=== PATIENT | female | born 1945 | race Caucasian/White ===

== ENCOUNTER 2022-07-20 10:33 | Emergency (ER) | payer MEDICARE ==
[~2022-07-20] VITALS: Ht 165.1 cm; Wt 93.4 kg
--- NOTE | 2022-07-20 12:23 | ED General ---
General Chief Complaint: Back Problems Stated Complaint: LOWER BACK PAIN Nursing Triage Note: PT BROUGHT IN BY [facility] FROM HOME WITH COMPLAINT OF BACK AND LOWER EXTREMITY SWELLING. PT STATES WENT TO [facility] WALK IN ON MONDAY AND WAS PRESCRIBED ANTIBIOTICS FOR THE SWELLING. STATES SHE HAS CHRONIC BACK PAIN THAT HAS WORSENED IN THE LAST FEW DAYS. STATES NORMALLY TAKES MELOXICAM FOR HER ARTHRITIS. STATES SHE HAS NOT ESTABLISHED WITH PCP AFTER MOVING HERE. Source of Information: Patient Exam Limitations: No Limitations History of Present Illness Date Seen by Provider: Jul 20, 2022 Time Seen by Provider: 12:06 Initial Comments Patient with a chief complaint of low back discomfort and pain across anterior low pelvis since last night. She has had progressive swelling in her LE bilaterally over many weeks and was recently in urgent care and prescribed antibiotics for open wounds to her LLE. She is on Keflex. Timing/Duration: 2-3 Days Severity: Moderate Associated Systoms: Other Allergies and Home Medications Allergies Coded Allergies: No Known Drug Allergies (Unverified , 07/20/22) Patient Home Medication List Home Medication List Reviewed: Yes Tramadol HCl (Tramadol HCl) 50 Mg Tablet, 50 MG PO Q6H PRN for PAIN Prescribed by: LEE BEGUM on 07/20/22 1430 Review of Systems Review of Systems Constitutional: see HPI Past Odivsen-Wghhxb-Eapujs Hx Patient Social History Tobacco Use?: No Use of E-Cig and/or Vaping dev: No Substance use?: No Alcohol Use?: No Pt feels they are or have been: No Physical Exam Vital Signs Vital Signs - First Documented 07/20/22 10:33 Temp 36.7 Pulse 99 Resp 20 B/P (MAP) 172/80 (110) Pulse Ox 97 O2 Delivery Room Air Capillary Refill : Less Than 3 Seconds Height, Weight, BMI Height: '" Weight: lbs. oz. kg; 34.00 BMI Method: Progress/Results/Core Measures Suspected Sepsis SIRS Temperature: Pulse: 99 Respiratory Rate: 20 Laboratory Tests 07/20/22 10:39: White Blood Count 8.0 Blood Pressure 172 /80 Mean: 110 Laboratory Tests 07/20/22 10:39: Creatinine 0.68, Platelet Count 207 Results/Orders Lab Results Laboratory Tests Test 07/20/22 10:39 07/20/22 13:20 Range/Units White Blood Count 8.0 4.3-11.0 10^3/uL Red Blood Count 4.37 3.80-5.11 10^6/uL Hemoglobin 11.7 11.5-16.0 g/dL Hematocrit 35 35-52 % Mean Corpuscular Volume 81 80-99 fL Mean Corpuscular Hemoglobin 27 25-34 pg Mean Corpuscular Hemoglobin Concent 33 32-36 g/dL Red Cell Distribution Width 14.6 H 10.0-14.5 % Platelet Count 207 130-400 10^3/uL Mean Platelet Volume 10.2 9.0-12.2 fL Immature Granulocyte % (Auto) 1 % Neutrophils (%) (Auto) 80 H 42-75 % Lymphocytes (%) (Auto) 14 12-44 % Monocytes (%) (Auto) 5 0-12 % Eosinophils (%) (Auto) 0 0-10 % Basophils (%) (Auto) 0 0-10 % Neutrophils # (Auto) 6.4 1.8-7.8 10^3/uL Lymphocytes # (Auto) 1.1 1.0-4.0 10^3/uL Monocytes # (Auto) 0.4 0.0-1.0 10^3/uL Eosinophils # (Auto) 0.0 0.0-0.3 10^3/uL Basophils # (Auto) 0.0 0.0-0.1 10^3/uL Immature Granulocyte # (Auto) 0.0 0.0-0.1 10^3/uL Sodium Level 138 135-145 MMOL/L Potassium Level 4.1 3.6-5.0 MMOL/L Chloride Level 104 98-107 MMOL/L Carbon Dioxide Level 25 21-32 MMOL/L Anion Gap 9 5-14 MMOL/L Blood Urea Nitrogen 13 7-18 MG/DL Creatinine 0.68 0.60-1.30 MG/DL Estimat Glomerular Filtration Rate 91 BUN/Creatinine Ratio 19 Glucose Level 147 H 70-105 MG/DL Calcium Level 9.9 8.5-10.1 MG/DL Urine Color YELLOW Urine Clarity CLEAR Urine pH 6.0 5-9 Urine Specific [place] <=1.005 1.016-1.022 Urine Protein NEGATIVE NEGATIVE Urine Glucose (UA) NEGATIVE NEGATIVE Urine Ketones NEGATIVE NEGATIVE Urine Nitrite NEGATIVE NEGATIVE Urine Bilirubin NEGATIVE NEGATIVE Urine Urobilinogen 0.2 < = 1.0 MG/DL Urine Leukocyte Esterase NEGATIVE NEGATIVE Urine RBC (Auto) NEGATIVE NEGATIVE Urine RBC NONE /HPF Urine WBC NONE /HPF Urine Squamous Epithelial Cells RARE /HPF Urine Crystals NONE /LPF Urine Bacteria NEGATIVE /HPF Urine Casts NONE /LPF Urine Mucus NEGATIVE /LPF Urine Culture Indicated NO My Orders Orders - LEE BEGUM MD Ed Iv/Invasive Line Start (07/20/22 12:22) Cbc With Automated Diff (07/20/22 12:22) Basic Metabolic Panel (07/20/22 12:22) Ua Culture If Indicated (07/20/22 12:22) Tramadol Tablet (Ultram Tablet) (07/20/22 14:30) Medications Given in ED Current Medications Medications Dose Ordered Sig/Bennett Route Start Time Stop Time Status Last Admin Dose Admin Tramadol HCl 50 mg ONCE ONCE PO 07/20/22 14:30 07/20/22 14:32 DC 07/20/22 14:35 50 MG Vital Signs/I&O 07/20/22 07/20/22 10:33 14:51 Temp 36.7 Pulse 99 Resp 20 B/P (MAP) 172/80 (110) 159/80 Pulse Ox 97 O2 Delivery Room Air Capillary Refill : Less Than 3 Seconds Blood Pressure Mean: 110 Departure Impression Primary Impression: Low back pain Qualified Codes: M54.50 - Low back pain, unspecified Additional Impressions: Edema Qualified Codes: R60.9 - Edema, unspecified Cellulitis of leg without foot, left Disposition: 01 HOME, SELF-CARE Condition: Improved Departure-Patient Inst. Decision time for Depature: 14:23 Referrals: [facility] [place] [facility],LOCAL PHYSICIAN (PCP) Primary Care Physician Patient Instructions: Low Back Pain ED, Dependent Edema (DC) Add. Discharge Instructions: Try and keep your legs elevated while you are sitting in your wheelchair, this will keep the swelling from getting worse. Tramadol, 1 tablet every 8 hours as needed for pain. You can also take Extra Strength Tylenol, 2 tablets every 6 hours as needed for pain. Continue you antibiotics until they are gone. Carefully watch the salt in your diet because this makes you retain too much fluid (when you eat too much salt). Avoid Soda beverages, canned vegetables, restaurant prepared foods. Please call [facility] today or tomorrow for a follow up appointment to establish care. They can also help with Home Health/Aid services. Return to the Emergency Department for any new, concerning or emergent complaints. Scripts Tramadol HCl (Tramadol HCl) 50 Mg Tablet 50 MG PO Q6H PRN for PAIN, #10 TAB 0 Refills Prov: LEE BEGUM MD 07/20/22 LEE BEGUM MD Jul 20, 2022 12:23
[2022-07-20 12:30] LABS: BASOPHILS % (AUTO) 0 % (0-10); EOSINOPHILS % (AUTO) 0 % (0-10); HEMATOCRIT 35 % (35-52); HEMOGLOBIN 11.7 g/dL (11.5-16.0); LYMPHOCYTES # (AUTO) 1.1 10^3/uL (1.0-4.0); LYMPHOCYTES % (AUTO) 14 % (12-44); MEAN CORPUSCULAR HEMOGLOBIN 27 pg (25-34); MEAN CORPUSCULAR HGB CONC 33 g/dL (32-36); MEAN CORPUSCULAR VOLUME 81 fL (80-99); MEAN PLATELET VOLUME 10.2 fL (9.0-12.2); MONOCYTES # (AUTO) 0.4 10^3/uL (0.0-1.0); MONOCYTES % (AUTO) 5 % (0-12); NEUTROPHILS # (AUTO) 6.4 10^3/uL (1.8-7.8); NEUTROPHILS % (AUTO) 80 % (42-75); PLATELET COUNT 207 10^3/uL (130-400)
[2022-07-20 12:38] LABS: CALCIUM 9.9 MG/DL (8.5-10.1); CREATININE SERUM 0.68 MG/DL (0.60-1.30); POTASSIUM 4.1 MMOL/L (3.6-5.0)
[2022-07-20 13:27] LABS: BILIRUBIN,URINE NEGATIVE (NEGATIVE); CLARITY,URINE CLEAR; COLOR,URINE YELLOW; GLUCOSE, URINE (UA) NEGATIVE (NEGATIVE); KETONES,URINE NEGATIVE (NEGATIVE); LEUKOCYTE ESTERASE ,URINE NEGATIVE (NEGATIVE); NITRITE,URINE NEGATIVE (NEGATIVE); PROTEIN,URINE NEGATIVE (NEGATIVE)
[2022-07-20 13:38] LABS: BACTERIA,URINE NEGATIVE /HPF; SQUAMOUS EPITHELIAL CELL,UR RARE /HPF
[2022-07-20] MEDS ORDERED: TRM50T PO (14:28)
[2022-07-20 14:51] VITALS: BP 159/80
== END 2022-07-20 15:10 | disposition home or self-care (01) ==
LOC: ER 10:35
DX: M54.50 Low back pain, unspecified (principal); L03.116 Cellulitis of left lower limb; R60.0 Localized edema
CPT/HCPCS: 36415; 51701; 80048; 81000; 85025

== ENCOUNTER 2022-07-23 18:21 | Emergency (ER) | payer MEDICARE, MEDICAID ==
[~2022-07-23] VITALS: Ht 165 cm; Wt 93.4 kg
[~2022-07-23 18:21] MED LIST: TRM50T PO
[2022-07-23] MEDS ORDERED: TETANUS,DIPTH,PERTUSS P/F (BOOSTRIX) 0.5 ML VIAL IM ONE (18:45)
--- NOTE | 2022-07-23 19:12 | ED Hip Pain/Injury ---
General Chief Complaint: Hip/Pelvic Problems Stated Complaint: LEFT HIP PAIN Nursing Triage Note: PT TO [facility] WITH CC OF A FALL LAST WEEK, LT HIP/THIGH PAIN. STATES SHE HAS NOT TAKEN ANYTHING FOR PAIN, WAS AT [facility] YESTERDAY FOR SWELLING IN BOTH LEGS. PT HAS SEVERAL SCRATCHES ON BOTH LOWER LEGS FROM CATS/KITTENS. DENIES ANY RAD OF LEGS OR HIP Source: patient (SOMEWHAT DIFFICULT HISTORIAN) History of Present Illness Date Seen by Provider: Jul 23, 2022 Time Seen by Provider: 18:22 Initial Comments PT ARRIVES VIA EMS FROM HOME C/O LEFT HIP AND THIGH PAIN SINCE FALLING OUT OF HER WHEELCHAIR LAST Monday07/19/22 STATES SHE FELL ASLEEP IN HER MANUAL WHEELCHAIR AND FELL OUT OF IT. SHE BUMPED HER HEAD ON THE LEG OF A TABLE--NO LOSS OF CONSCIOUSNESS. 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 SHE HAS EXTENSIVE WOUNDS AND SCRATCHES ON BOTH LOWER LEGS AND BOTH HANDS SHE STATES IT IF FROM HER CATS AND KITTENS SCRATCHING HER. SHE C/O BILATERAL LEG SWELLING ( CHRONIC ) AND REDNESS AND WEEPING. NO FEVER LAST TETANUS IS UNKNOWN SHE DID NOT SEEK CARE AT THE TIME OF THE INCIDENT SHE CAME TO ER ON 07/20/22 AND COMPLAINED OF LOW BACK PAIN . LAB WAS DONE, AND SHE WAS GIVEN RX FOR TRAMADOL BUT DID NOT PICK IT UP SHE STATES SHE WENT TO [facility] WALK IN CLINIC LAST MONDAY FOR THE SCRATCHES ON HER L EGS AND WAS PRESCRIBED AN ANTIBIOTIC SHE STATES SHE DID NOT GO TO HER APPOINTMENT AT [facility]- ON MONDAY FOR THIS PROBLEM, BUT DID GO YESTERDAY FOR THE SWELLING IN HER LEGS SHE STATES SHE WAS STARTED ON A DIURETIC, HER BLOOD PRESSURE MEDICATION DOSE WAS CUT IN HALF AND SHE WAS PRESCRIBED AN ANTIBIOTIC FOR THE WOUNDS ON HER LEGS. SYMPTOMS ARE NO DIFFERENT TODAY IN ANY WAY. SHE HAS NOT HAD ANY IMAGING OF ANY KIND. SHE HAS HISTORY OF HTN, UTERINE CANCER --STATES "CLEAR SINCE 2015", CHRONIC LEG EDEMA SHE DENIES HISTORY OF DIABETES OR HEART DISEASE SHE HAS CHRONIC GENERALIZED PAIN AND ARTHRITIS SHE HAS CHRONIC BACK PAIN AND "SCIATICA" AND HAS HAD BACK SURGERY IN THE PAST PER MED RECONCILIATION, PT HAS BEEN PRESCRIBED: KEFLEX AND MUPIROCIN 07/15/22 TRAMADOL 07/20/22 AUGMENTIN 07/22/22 SHE HAS BEEN PRESCRIBED : PRAMIPEXOLE, OMEPRAZOLE, TIZANIDINE, MELOXICAM, ATORVASTATIN LISINOPRIL--CHANGED TO LISINOPRIL / HCTZ 07/22/22 PT STATES SHE RAN OUT OF TIZANIDINE, AND STILL HAS MELOXICAM PT STATES SHE MOVED HERE 12/14/21 FROM [place], AND LIVES HERE WITH HER SON. HE DOES NOT HAVE A VEHICLE PT STATES SHE GETS AROUND IN A MANUAL WHEELCHAIR, HAS A POWER CHAIR BUT IT HAS BEEN BROKEN FOR 3 YEARS, AND HAS NEVER ATTEMPTED TO GET IT FIXED Other PCP [facility] Allergies and Home Medications Allergies Coded Allergies: No Known Drug Allergies (Unverified , 07/20/22) Patient Home Medication List Tramadol HCl (Tramadol HCl) 50 Mg Tablet, 50 MG PO Q6H PRN for PAIN Prescribed by: LEE BEGUM on 07/20/22 1430 Review of Systems Constitutional: no symptoms reported Respiratory: no symptoms reported; No short of breath Cardiovascular: no symptoms reported Gastrointestinal: no symptoms reported Genitourinary: no symptoms reported Musculoskeletal: see HPI Skin: see HPI Psychiatric/Neurological: No Symptoms Reported Past Nxbylyy-Vpqgcb-Wkxpon Hx Patient Social History Tobacco Use?: No Smoking Status: Never a Smoker Smokeless Tobacco Frequency: Never a User Substance use?: No Alcohol Use?: No Immunizations Up To Date Tetanus Booster (TDap): Unknown Past Medical History Surgery/Hospitalization HX: HTN, ARTHRITIS, BACK SURGERY, C SECTION, VIMAL, UTERINE CA Surgeries: Yes Section, Gallbladder, Hysterectomy, Oophorectomy, Orthopedic Respiratory: No Cardiac: Yes Chronic Edema/Swelling, High Cholesterol, Hypertension Neurological: No Genitourinary: No Gastrointestinal: Yes Gastroesophageal Reflux Musculoskeletal: Yes (SCITATICA; S/P BACK SURGERY; RESTLESS LEG SYNDROME) Arthritis, Chronic Back Pain Endocrine: No HEENT: No Cancer: Yes Uterine Did You Recieve Any Treatments: Yes What Type of Treatment Did You: Surgical Intervention Psychosocial: No Integumentary: No Blood Disorders: No Family Medical History SOCIAL HISTORY: -SMOKING--DENIES -ETOH--DENIES -DRUGS--DENIES PAST SURGICAL HISTORY: - -HYSTERECTOMY / BILATERAL SALPINGO=OOPHORECTOMY -BACK SURGERY Physical Exam Vital Signs Vital Signs - First Documented 07/23/22 18:24 Temp 37.0 Pulse 96 Resp 20 B/P (MAP) 141/62 (88) O2 Delivery Room Air Capillary Refill : Less Than 3 Seconds Height, Weight, BMI Height: '" Weight: lbs. oz. kg; 34.00 BMI Method: General Appearance: No Apparent Distress, WD/WN, Obese, Other (FILTHY, MALODOROUS, ) HEENT: PERRL/EOMI Neck: Full Range of Motion, Normal Inspection, Non Tender, Supple Cardiovascular: Regular Rate, Rhythm, No JVD, No Murmur, Normal Peripheral Pulses Respiratory: Normal Breath Sounds, No Accessory Muscle Use, No Respiratory Distress Peripheral Pulses: 1+ Dorsalis Pedis (R), 1+ Left Dors-Pedis (L) Gastrointestinal: Non Tender, Soft Back: No CVA Tenderness Extremity: Pedal Edema (2+ EDEMA BILATERALLY, EXTENSIVE SORES AND LINEAR SCRATCHES/ABRASIONS WITH OOZING/WEEPING FROM MULTIPLE AREAS--MOSTLY THE ANTERIOR ASPECT OF BOTH LOWER LEGS AND TOPS OF FEET; THERE IS PATCHY ERYTHMA TO ANTERIOR ASPECT OF BILATERAL LOWER LEGS--RIGHT ? LEFT, NO ABSCESS OR STREAKS. SHE HAS SEVERAL PUNCTURE WOUNDS AND LINEAR SCRATCHES TO THE DORSAL ASPECT OF BOTH HANDS ANd FOREARMS, BUT NO DRAINAGE OR BLEEDING OR ERYTHEMA, NO STRAKS. MOTOR/SE NSORY/VASCUOLAR INTACT IN ALL EXTREMITIES. DTR'S INTACT. ), Other (THERE IS SOME MILD BRUISING TO THE DORSUM OF RIGHT HAND. THERE IS MODERATE BRUISING AND SWELLING TO LEFT GREAT TOE. THERE IS TENDERNESS TO LEFT HIP, WITH LIMITED ROM DUE TO PAIN . ) Neurologic/Psychiatric: Alert, Oriented x3, No Motor/Sensory Deficits, Normal Mood/Affect, dice manager II-XII Norm as Tested Skin: Normal Color, Warm/Dry Progress/Results/Core Measures Results/Orders My Orders Orders - JENNIFER DOLAN DO Hand, Right, 3 Views (07/23/22 18:32) Femur, Left, 2 Views (07/23/22 18:32) Foot, Right, 3 View (07/23/22 18:32) Dipht,Pertuss(Acell),Tet Adult (Boostrix (07/23/22 18:45) Ct Lumbar Spine Wo (07/23/22 18:34) Ct Pelvis Wo (07/23/22 18:34) Pelvis 1 To 2 Views (07/23/22 18:41) Ketorolac Injection (Toradol Injection) (07/23/22 20:15) Medications Given in ED Current Medications Medications Dose Ordered Sig/Bennett Route Start Time Stop Time Status Last Admin Dose Admin Diphtheria/ Tetanus/Acell Pertussis 0.5 ml ONCE ONCE IM 07/23/22 18:45 07/23/22 18:46 DC 07/23/22 18:41 0.5 ML Ketorolac Tromethamine 60 mg ONCE ONCE IM 07/23/22 20:15 07/23/22 20:16 DC 07/23/22 20:13 60 MG Vital Signs/I&O 07/23/22 18:24 Temp 37.0 Pulse 96 Resp 20 B/P (MAP) 141/62 (88) O2 Delivery Room Air Blood Pressure Mean: 88 Progress Progress Note : Progress Note DPT VACCINATION GIVEN XRAYS AND CT SCAN DONE REVIEWED PRIOR RECORDS--SINGLE ER VISIT HERE 07/20/22. DISCUSSED TEST RESULTS, ANTICIPATED COURSE, SYMPTOMATIC TREATMENT, MEDICATIONS, NEED FOR FOLLOW UP AND RETURN PRECAUTIONS. AGAIN REVIEWED WOUND CARE OF HER LEGS AND HANDS--PT IS FILTHY AND WOUNDS HAVE NOT BEEN CLEANSED OR DRESSED AT ALL, AND SHE HAS NOT BEEN USING ANY TOPICAL ANTIBIOTICS TO THE WOUNDS ALSO STRESSED THE IMPORTANCE OF TAKING THE NEW ORAL ANTIBIOTIC THAT SHE WAS PRESCRIBED, WHICH SHE HAS NOT BEEN TAKING. ADVISED PT THAT SHE NEEDS TO COMMERCIAL ACCOUNT MANAGER THE PRESCRIPTION FOR PAIN MEDICATION FROM HER PREVIOUS ER VISIT ALSO ADVISED HER THAT SHE NEEDS TO FOLLOW UP WITH [facility] FOR REFILLS ON HER TIZANIDINE Diagnostic Imaging Comments CT SCANS--PER RADIOLOGIST REPORTS AT 1934: COMPARISON: None. FINDINGS: CT lumbar spine: There is no acute lumbar spine fracture or dislocation. There are mild hypertrophic spurs involving the mid to lower lumbar spine. There is lower lumbar spine facet arthropathy. There are diffuse disk bulges at the L3-L4, L4-L5, and L5-S1 levels. There is severe bilateral L3-L4 neural foramen narrowing. Moderate left L4-L5 neural foramen narrowing. There is no significant paraspinal soft tissue abnormality. There is a 2.2 cm fat density nodule involving left adrenal gland. CT PELVIS: There is no acute fracture or dislocation. There are severe degenerative spurs and severe joint space narrowing involving both femoral acetabular regions. There is prominent subchondral cystic changes involving both hips with left-sided more than the right. There is sclerosis of the sacrum a joint region. There is no intrapelvic or extrapelvic soft tissue structures are unremarkable. IMPRESSION: 1.: There is no acute lumbar spine fracture or dislocation. There is multilevel lumbar spine degenerative disease. 2: There is no acute fracture or dislocation of the pelvis. 3: There is severe degenerative disease of both hips. 4.: There is a left adrenal gland adenoma. Departure Impression Primary Impression: CHRONIC DEPENDENT LEG EDEMA Additional Impressions: Chronic low back pain with bilateral sciatica Chronic hip pain, bilateral Bilateral lower leg cellulitis Cat scratch of multiple sites Lahhqlxgoh-espffkmks-hvcobve (DPT) vaccination administered at current visit Fall involving wheelchair as cause of accidental injury at home as place of occurrence Lumbar degenerative disc disease Arthritis of both hips Disposition: HOME, SELF-CARE Condition: Stable Departure-Patient Inst. Referrals: GUSTABO GARCIA DO [facility] Patient Instructions: General Trauma, Adult ED, Degenerative Disc Disease ED, Hip Pain ED, Wound Care ED, Cellulitis (Skin Infection), Adult ED, Low Back Pain ED Add. Discharge Instructions: TAKE ALL OF YOUR MEDICATIONS PRESCRIBED YOU NEED TO COMMERCIAL ACCOUNT MANAGER THE PRESCRIPTION FOR PAIN MEDICATION FROM THE PHARMACY, THAT WAS PRESCRIBED TO YOU ON 07/20/22 BY THE ER PHYSICIAN. FOLLOW UP WITH [facility] IN 2-3 DAYS TO RECHECK YOUR LEG WOUNDS AND FOR FURTHER CARE OF YOUR CHRONIC PAIN COMPLAINTS ELEVATE YOUR LEGS MUCH POSSIBLE CLEAN WOUNDS TWICE A DAY AND APPLY THE PRESCRIBED ANTIBIOTIC OINTMENT AND FRESH DRESSINGS TWICE A DAY All discharge instructions reviewed with patient and/or family. Voiced unde rstanding. JENNIFER DOLAN DO Jul 23, 2022 19:12
--- NOTE | 2022-07-23 19:14 | Diagnostic Imaging Report ---
CLINICAL INDICATION: Patient status post fall last week. Patient has left hip and thigh pain. Patient with swelling in both legs. Patient with back pain. EXAMS: 1: Axial CT scan of the lumbar spine without contrast. Sagittal and coronal reformatted images are created. Auto Exposure Controls were utilized during the CT exam to meet ALARA standards for radiation dose reduction. 2: CT scan of the pelvis without contrast. Sagittal and coronal reformatted images are created. Auto Exposure Controls were utilized during the CT exam to meet ALARA standards for radiation dose reduction. COMPARISON: None. FINDINGS: CT lumbar spine: There is no acute lumbar spine fracture or dislocation. There are mild hypertrophic spurs involving the mid to lower lumbar spine. There is lower lumbar spine facet arthropathy. There are diffuse disk bulges at the L3-L4, L4-L5, and L5-S1 levels. There is severe bilateral L3-L4 neural foramen narrowing. Moderate left L4-L5 neural foramen narrowing. There is no significant paraspinal soft tissue abnormality. There is a 2.2 cm fat density nodule involving left adrenal gland. CT PELVIS: There is no acute fracture or dislocation. There are severe degenerative spurs and severe joint space narrowing involving both femoral acetabular regions. There is prominent subchondral cystic changes involving both hips with left-sided more than the right. There is sclerosis of the sacrum a joint region. There is no intrapelvic or extrapelvic soft tissue structures are unremarkable. IMPRESSION: 1.: There is no acute lumbar spine fracture or dislocation. There is multilevel lumbar spine degenerative disease. 2: There is no acute fracture or dislocation of the pelvis. 3: There is severe degenerative disease of both hips. 4.: There is a left adrenal gland adenoma. Dictated by: Dictated on workstation # [id number]
--- NOTE | 2022-07-23 19:49 | Diagnostic Imaging Report ---
CLINICAL INDICATIONS: Patient status post fall last week with left hip and pelvic pain. EXAMS: 1: X-ray of the pelvis AP view 2: X-ray left femur, 4 views. COMPARISON: CT scan of the pelvis without contrast dated 07/23/2022. FINDINGS: X-ray of the pelvis and left femur show no acute fracture or dislocation. There are severe degenerative spurs involving both hips with joint space narrowing and subchondral sclerosis. There is enthesopathy of the iliac crests and ischium. There is lower lumbar spine degenerative disease. X-ray of the left femur shows no significant abnormality. Visualized portion left kidney is unremarkable. IMPRESSION: 1: X-rays of the pelvis and left femur show no acute fracture or dislocation. 2: There is severe degenerative disease of both hips. Dictated by: Dictated on workstation # [id number]
--- NOTE | 2022-07-23 20:00 | Diagnostic Imaging Report ---
CLINICAL INDICATIONS: Patient has lateral foot pain status post fall last week. EXAM: X-ray of the right foot, 3 views. COMPARISON: None. FINDINGS: There is osteopenia which limits evaluation for fine bony detail. There is no acute fracture or dislocation. There is bony irregularity and spurring involving the base of the 5th metatarsal bone, dorsal midfoot, and 1st MTP joint. There is hypertrophic calcaneal spurs at the plantar and Achilles attachment. There is soft tissue swelling about the foot. There is no soft tissue air or radiodense foreign object. IMPRESSION: 1: There is no acute fracture or dislocation. 2: There is osteopenia involving the right foot. 3: There is degenerative disease of the right foot. Dictated by: Dictated on workstation # [id number]
--- NOTE | 2022-07-23 20:02 | Diagnostic Imaging Report ---
CLINICAL INDICATIONS: Patient fell last week with hand pain. EXAM: X-ray of the right hand, 3 views. COMPARISON: None. FINDINGS: There is no acute fracture or dislocation. There is a small chronic calcification seen distal to the ulnar styloid process. The distal radioulnar joints unremarkable. Carpal bones show no significant abnormality. There is erosive arthropathy seen throughout the 1st through 5th digits involving the DIP and PIP joints. There is degenerative spurs involving the 1st MCP joint and 1st CMC joint. Osteopenia seen. IMPRESSION: 1: There is no acute fracture or dislocation. 2: There is erosive arthropathy involving the right hand. Dictated by: Dictated on workstation # [id number]
[2022-07-23] MEDS ORDERED: KETOROLAC 60 MG/2 ML VIAL IM ONE (20:15)
[2022-07-23 20:45] VITALS: BP 135/58
== END 2022-07-23 20:59 | disposition home or self-care (01) ==
LOC: EDUNIT# 18:21 → ER 18:22
DX: S80.811A Abrasion, right lower leg, initial encounter (principal); S80.812A Abrasion, left lower leg, initial encounter; S60.512A Abrasion of left hand, initial encounter; S60.511A Abrasion of right hand, initial encounter; S50.812A Abrasion of left forearm, initial encounter; S50.811A Abrasion of right forearm, initial encounter; R60.0 Localized edema; M54.42 Lumbago with sciatica, left side; M54.41 Lumbago with sciatica, right side; G89.29 Other chronic pain; L03.116 Cellulitis of left lower limb; L03.115 Cellulitis of right lower limb; M51.36 Other intervertebral disc degeneration, lumbar region; M16.0 Bilateral primary osteoarthritis of hip; E66.9 Obesity, unspecified; Z68.34 Body mass index [BMI] 34.0-34.9, adult; Z23 Encounter for immunization; W55.03XA Scratched by cat, initial encounter; W05.0XXA Fall from non-moving wheelchair, initial encounter; Y92.009 Unspecified place in unspecified non-institutional (private) residence as the place of occurrence of the external cause
CPT/HCPCS: 72131; 72170; 72192; 73130; 73552; 73630; 90715

== ENCOUNTER 2022-08-12 19:18 | Observation (INO) | payer MEDICARE, MEDICAID ==
[~2022-08-12] VITALS: Ht 165 cm; Wt 87.1 kg
[2022-08-12 19:55] LABS: BASOPHILS % (AUTO) 0 % (0-10); EOSINOPHILS % (AUTO) 0 % (0-10); HEMATOCRIT 32 % (35-52); HEMOGLOBIN 10.8 g/dL (11.5-16.0); LYMPHOCYTES # (AUTO) 1.7 10^3/uL (1.0-4.0); LYMPHOCYTES % (AUTO) 15 % (12-44); MEAN CORPUSCULAR HEMOGLOBIN 27 pg (25-34); MEAN CORPUSCULAR HGB CONC 34 g/dL (32-36); MEAN CORPUSCULAR VOLUME 79 fL (80-99); MEAN PLATELET VOLUME 10.4 fL (9.0-12.2); MONOCYTES # (AUTO) 0.7 10^3/uL (0.0-1.0); MONOCYTES % (AUTO) 6 % (0-12); NEUTROPHILS % (AUTO) 78 % (42-75); PLATELET COUNT 223 10^3/uL (130-400); WHITE BLOOD COUNT 11.6 10^3/uL (4.3-11.0)
[2022-08-12] MEDS ORDERED: NS IV 500 ML 500 ML IV ONE (20:00)
[2022-08-12 20:06] LABS: ALBUMIN 3.8 GM/DL (3.2-4.5); BILIRUBIN,TOTAL 0.6 MG/DL (0.1-1.0); CALCIUM 9.2 MG/DL (8.5-10.1); CREATININE SERUM 0.97 MG/DL (0.60-1.30); TOTAL PROTEIN 6.2 GM/DL (6.4-8.2)
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
[2022-08-12 20:17] LABS: BILIRUBIN,URINE NEGATIVE (NEGATIVE); CLARITY,URINE CLEAR; COLOR,URINE YELLOW; GLUCOSE, URINE (UA) NEGATIVE (NEGATIVE); KETONES,URINE NEGATIVE (NEGATIVE); LEUKOCYTE ESTERASE ,URINE 3+ (NEGATIVE); NITRITE,URINE POSITIVE (NEGATIVE); PH,URINE 5.5 (5-9); PROTEIN,URINE NEGATIVE (NEGATIVE)
[2022-08-12 20:26] LABS: BACTERIA,URINE LARGE /HPF; WBC,URINE 50-100 /HPF
[2022-08-12] MEDS ORDERED: cefTRIAXone IV/IM 1,000 MG in NS (IVPB) 50 ML IV ONE (20:45)
[2022-08-12] MEDS ORDERED: diphenhydrAMINE 25 MG TAB (BENADRYL) PO PRN (22:00)
[2022-08-12] MEDS ORDERED: ANTACID SUSP 30 ML UDC (MYLANTA) PO PRN (22:00)
[2022-08-12] MEDS ORDERED: CALCIUM CARBONATE 500 MG (TUMS) TAB.CHEW PO PRN (22:00)
[2022-08-12] MEDS ORDERED: BISACODYL 10 MG SUPP (DULCOLAX) PR PRN (22:00)
[2022-08-12] MEDS ORDERED: MILK OF MAGNESIA 400 MG/5 ML 30 ML UDC PO PRN (22:00)
[2022-08-12] MEDS ORDERED: polyethylene glycoL POWDER 17 GM (MIRALAX) PACK PO PRN (22:00)
[2022-08-12] MEDS ORDERED: MELATONIN 3 MG TABLET PO PRN (22:00)
[2022-08-12] MEDS ORDERED: ONDANSETRON 4 MG/2 ML (SDV) Z0FRAN IV PRN (22:00)
[2022-08-12] MEDS ORDERED: cloNIDine 0.1 MG (CATAPRES) TAB PO PRN (22:00)
[2022-08-12] MEDS ORDERED: ALPRAZolam 1 MG (XANAX) TAB PO PRN (22:00)
[2022-08-12] MEDS ORDERED: diphenhydrAMINE 50 MG/ML INJ (BENADRYL) IVP PRN (22:00)
[2022-08-12] MEDS ORDERED: cefTRIAXone IV/IM 1,000 MG in NS (IVPB) 50 ML IV SCH (22:00)
[2022-08-12] MEDS ORDERED: LACTULOSE SYRUP 10GM/15ML (ENULOSE) 30ML UDC PO PRN (22:00)
[2022-08-12] MEDS ORDERED: ONDANSETRON 4 MG (ZOFRAN) ORAL DISSOLVE TAB PO PRN (22:00)
[2022-08-12] MEDS: NS IV 1000 ML 1,000 ML IV SCH (22:18)
[2022-08-12 22:24] VITALS: BP 132/73
[2022-08-12] MEDS: ENOXAPARIN 40 MG/0.4 ML (LOVENOX) SYR SC SCH (23:13)
[2022-08-12] MEDS: ACETAMINOPHEN 325 MG TABLET PO PRN (23:17)
[2022-08-13] VITALS (7 sets, daily range): BP systolic 101–127; BP diastolic 55–68
[2022-08-13 05:39] LABS: BASOPHILS % (AUTO) 0 % (0-10); EOSINOPHILS % (AUTO) 0 % (0-10); HEMATOCRIT 28 % (35-52); HEMOGLOBIN 9.3 g/dL (11.5-16.0); LYMPHOCYTES # (AUTO) 1.4 10^3/uL (1.0-4.0); LYMPHOCYTES % (AUTO) 17 % (12-44); MEAN CORPUSCULAR HEMOGLOBIN 27 pg (25-34); MEAN CORPUSCULAR HGB CONC 33 g/dL (32-36); MEAN CORPUSCULAR VOLUME 80 fL (80-99); MEAN PLATELET VOLUME 10.1 fL (9.0-12.2); MONOCYTES # (AUTO) 0.7 10^3/uL (0.0-1.0); MONOCYTES % (AUTO) 8 % (0-12); NEUTROPHILS # (AUTO) 5.8 10^3/uL (1.8-7.8); NEUTROPHILS % (AUTO) 74 % (42-75); PLATELET COUNT 170 10^3/uL (130-400); WHITE BLOOD COUNT 7.9 10^3/uL (4.3-11.0)
[2022-08-13 05:49] LABS: ALBUMIN 3.2 GM/DL (3.2-4.5)
[2022-08-13 05:50] LABS: POTASSIUM 3.7 MMOL/L (3.6-5.0)
[2022-08-13 05:51] LABS: CALCIUM 8.5 MG/DL (8.5-10.1)
[2022-08-13 05:52] LABS: TOTAL PROTEIN 5.3 GM/DL (6.4-8.2)
[2022-08-13 05:54] LABS: BILIRUBIN,TOTAL 0.2 MG/DL (0.1-1.0)
[2022-08-13 05:56] LABS: CREATININE SERUM 0.85 MG/DL (0.60-1.30)
--- NOTE | 2022-08-13 06:39 | History & Physical-Hospitalist ---
History of Present Illness HPI/Chief Complaint Chief complaint: UTI with inability to ambulate HPI: This is a 76-year-old female who moved here in December and her son takes care of her at home who presented to the ER with inability to ambulate. Apparently she was found to be very disheveled and poor hygiene and since her power wheelchair was not working she would defecate and urinate and sit in it all day. She does have breakdown on her buttocks and she does have a UTI. Source: patient Exam Limitations: no limitations Date Seen 08/13/22 Time Seen by a Provider: 11:00 Attending Physician No,Local Physician PCP Admitting Physician: Mirian Barton DO Attending Physician: Mirian Barton DO Referring Physician Date of Admission Aug 12, 2022 at 21:43 Home Medications & Allergies Home Medications Reviewed patient Home Medication Reconciliation performed by pharmacy medication reconciliations sensor technician and/or nursing. Patients Allergies have been reviewed. Allergies Allergies Coded Allergies No Known Drug Allergies (Unverified08/13/22) Past Eaabpin-Dudugd-Avmjpi Hx Patient Social History Marrital Status: single Employed/Student: retired Tobacco Use?: No Smoking Status: Never a Smoker Substance use?: No Alcohol Use?: No Pt feels they are or have been: No Immunizations Up To Date First/Initial COVID19 Vaccinat: YES Second COVID19 Vaccination Cesar: YES Tetanus Booster (TDap): Less Than 5 Years Hepatitis A: No Hepatitis B: No Current Status status: No status: No Advance Directives: No Communicates: Verbally Primary Language: Kuwaiti Preferred Spoken Language: Kuwaiti Is interpretation needed?: No Past Medical History Surgeries: Section, Gallbladder, Hysterectomy, Oophorectomy, Orthopedic Chronic Edema/Swelling, High Cholesterol, Hypertension Bladder Infection Gastroesophageal Reflux Arthritis, Chronic Back Pain Uterine Did You Recieve Any Treatments: Yes What Type of Treatment Did You: Surgical Intervention Blood Disorders: No Family Medical History SOCIAL HISTORY: -SMOKING--DENIES -ETOH--DENIES -DRUGS--DENIES PAST SURGICAL HISTORY: - -HYSTERECTOMY / BILATERAL SALPINGO=OOPHORECTOMY -BACK SURGERY Review of Systems Constitutional: see HPI, dizziness, malaise, weakness EENTM: no symptoms reported Respiratory: no symptoms reported Cardiovascular: no symptoms reported Gastrointestinal: no symptoms reported Genitourinary: no symptoms reported Musculoskeletal: back pain, joint pain Skin: see HPI Psychiatric/Neurological: Depressed Physical Exam Physical Exam Vital Signs Vital Signs - First Documented 08/12/22 08/12/22 19:22 22:24 Temp 37.0 Pulse 109 Resp 20 B/P (MAP) 122/80 (94) Pulse Ox 95 O2 Delivery Room Air FiO2 21 Capillary Refill : Less Than 3 Seconds Height, Weight, BMI Height: '" Weight: lbs. oz. kg; 31.99 BMI Method: General Appearance: No Apparent Distress, Chronically ill Eyes: Right Eye Normal Inspection, Right Eye PERRL HEENT: PERRL/EOMI, Normal ENT Inspection, Pharynx Normal, Moist Mucous Membranes Neck: Full Range of Motion, Normal Inspection, Non Tender Respiratory: Chest Non Tender, Lungs Clear, Normal Breath Sounds, No Accessory Muscle Use, No Respiratory Distress Cardiovascular: Regular Rate, Rhythm, No Edema, No Gallop, No JVD, No Murmur, Normal Peripheral Pulses Gastrointestinal: Normal Bowel Sounds, No Organomegaly, No Pulsatile Mass, Non Tender, Soft Back: Normal Inspection, No CVA Tenderness, No Vertebral Tenderness Extremity: Normal Capillary Refill, Normal Inspection, Normal Range of Motion, Non Tender, No Calf Tenderness, No Pedal Edema Neurologic/Psychiatric: Alert, Oriented x3, stitch bonding machine operator II-XII Norm as Tested, Depressed Affect, Motor Weakness (Legs 2/5) Skin: Normal Color, Warm/Dry Lymphatic: No Adenopathy Results Results/Procedures Labs Laboratory Tests 08/12/22 19:20 08/13/22 05:14 Patient resulted labs reviewed. Assessment/Plan Admission Diagnosis Assessment: Inability to ambulate UTI Poor social situation Buttock breakdown RLS Hypertension Osteoarthritis Hyperlipidemia Plan: Treat UTI Wound care may be needed PT and OT Admission Status: Observation MIRIAN BARTON DO Aug 13, 2022 06:39
[2022-08-13] MEDS: DOCUSATE SODIUM 100 MG (COLACE) CAP PO SCH ×2 (08:43→20:28)
[2022-08-13] MEDS: SENNOSIDES 8.6 MG (SENOKOT) TAB PO SCH ×2 (08:43→20:28)
--- NOTE | 2022-08-13 10:11 | Physical Therapy Evaluation ---
PT Evaluation-General Medical Diagnosis Admission Date Aug 12, 2022 at 21:43 Medical Diagnosis: general weakness /UTI Onset Date: Aug 12, 2022 Therapy Diagnosis Therapy Diagnosis: Generalized weakness Precautions Precautions/Isolations: Standard Precautions Weight Bear Status Right Lower Extremity: Right Non Weight Bearing Left Lower Extremity: Left Non Weight Bearing Referral Physician: Dr. Barton Reason for Referral: Evaluation/Treatment Medical History Pertinent Medical History: HTN Current History ED via EMS secondary to getting hot and overheated. Also reported suspected UTI. Pt uses a power chair due to a spinal injury 2 years ago. She lives with her son. She is incontinent of B/B, as she cannot get her power chair into the bathroom to transfer. She also reports she has been sleeping in power chair Reviewed History: Yes Social History Home: Single Level Current Living Status: Children Prior Prior Level of Function SCALE: Activities may be completed with or without assistive devices. 1-Hxgrvfgnpa-eoyzdao completes the activity by him/herself with no assistance from a helper. 5-Set-up or Clean-up Assistance-helper sets up or cleans up; patient completes activity. [place] assists only prior to or following the activity. 4-Supervision or Touching Assistance-helper provides verbal cues and/or touching/steadying and/or contact guard assistance as patient completes activity. Assistance may be provided throughout the activity or intermittently. 3-Partial/Moderate Assistance-helper does LESS THAN HALF the effort. [place] lifts, holds or supports trunk or limbs, but provides less than half the effort. 2-Substantial/Maximal Assistance-helper does MORE THAN HALF the effort. [place] lifts or holds trunk or limbs and provides more than half the effort. 4-Omicyfsno-xoaexg does ALL the effort. Patient does none of the effort to complete the activity. Or, the assistance of 2 or more helpers is required for the patient to complete the activity. If activity was not attempted, code reason: 7-Patient Refused. 9-Not Applicable-not attempted and the patient did not perform the activity before the current illness, exacerbation or injury. 10-Not Attempted due to Environmental Limitations-(lack of equipment, weather restraints, etc.). 88-Not Attempted due to Medical Conditions or Safety Concerns. Prior Devices Use: Motorized wheelchair PT Evaluation-Current Subjective Pt supine in bed upon arrival to room, agreeable to PT treatment Objective Patient Orientation: Person, Place, Situation Attachments: Sherman Catheter, IV ROM/Strength ROM Lower Extremities Decreased hamstring length in B legs. Maintains knee flexion Strength Lower Extremities <3/5 with functional mobility Integumentary/Posture Integumentary refer to nursing notes Bowel Incontinence: Yes Bladder Incontinence: Yes Neuromuscular (Tone, Coordination, Reflexes) grossly intact Sensory Vision: Functional Hearing: Functional Hand Dominance: Right Sensation Right Lower Extremit: Intact Sensation Left Lower Extremity: Intact Transfers Roll Left to Right (QC): 4 Sit to Lying (QC): 4 Lying to Sitting/Side of Bed(Q: 4 Sit to Stand (QC): 1 Pt dependent with sit to stand, unable to achieve full upright position in 3 tries. Balance Sitting Static: Fair Sitting Dynamic: Fair Standing Static: Poor Assessment/Needs Pt at wheelchair level prior to hospital admission, at this date, she is unable to safely transfer from bed to chair. Would benefit from PT treatment to increase transfer safety Rehab Potential: Poor PT Five Piece Expansion Maker Hand Goals Five Piece Expansion Maker Hand Goals PT Five Piece Expansion Maker Hand Goals Time Frame: Aug 27, 2022 Roll Left & Right (QC): 6 Sit to Lying (QC): 6 Lying-Sitting on Side/Bed(QC): 6 Sit to Stand (QC): 3 Chair/Jdk-as-Imktu Xfer(QC): 3 Toilet Transfer (QC): 3 Does the Patient Walk: No and Walking Goal NOT indicated PT Plan Problem List Problem List: Activity Tolerance, Functional Strength, Safety, Balance, Gait, Transfer, Bed Mobility, ROM Treatment/Plan Treatment Plan: Continue Plan of Care Treatment Plan: Bed Mobility, Education, Functional Activity Jelani, Functional Strength, Gait, Safety, Therapeutic Exercise, Transfers Treatment Duration: Aug 27, 2022 Frequency: 6 times per week Estimated Hrs Per Day: .25 hour per day Patient and/or Family Agrees t: Yes Time Time In: 955 Time Out: 1005 DATE: Aug 13, 2022 Total Billed Treatment Time: 10 Total Billed Treatment 1 visit, LORETA SALAZAR PT Aug 13, 2022 10:11
[2022-08-13] MEDS: HYDROmorphone 2 MG/ML VIAL (DILAUDID) IV PRN (11:15)
[2022-08-13] MEDS: NS IV 1000 ML 1,000 ML IV SCH (11:17)
[2022-08-13] MEDS ORDERED: LISI20TA26 PO (15:48)
[2022-08-13] MEDS ORDERED: TIZA-169 PO (15:48)
[2022-08-13] MEDS ORDERED: PRAM0.257 PO (15:48)
[2022-08-13] MEDS ORDERED: OMEP20CA18 PO (15:48)
[2022-08-13] MEDS ORDERED: ATOR20TA66 PO (15:48)
[2022-08-13] MEDS ORDERED: MELO15TA39 PO (15:48)
[2022-08-13] MEDS: ENOXAPARIN 40 MG/0.4 ML (LOVENOX) SYR SC SCH (20:27)
[2022-08-13] MEDS ORDERED: cefTRIAXone IV/IM 1,000 MG in NS (IVPB) 50 ML IV SCH (21:00)
[2022-08-13] MEDS: PRAMIPEXOLE 0.125 MG (MIRAPEX) TABLET PO SCH (21:06)
[2022-08-14 04:02] VITALS: BP 131/61
[2022-08-14 06:06] LABS: BASOPHILS % (AUTO) 0 % (0-10); EOSINOPHILS % (AUTO) 0 % (0-10); HEMATOCRIT 29 % (35-52); HEMOGLOBIN 9.4 g/dL (11.5-16.0); LYMPHOCYTES # (AUTO) 1.4 10^3/uL (1.0-4.0); LYMPHOCYTES % (AUTO) 18 % (12-44); MEAN CORPUSCULAR HEMOGLOBIN 26 pg (25-34); MEAN CORPUSCULAR HGB CONC 32 g/dL (32-36); MEAN CORPUSCULAR VOLUME 81 fL (80-99); MEAN PLATELET VOLUME 10.3 fL (9.0-12.2); MONOCYTES # (AUTO) 0.6 10^3/uL (0.0-1.0); MONOCYTES % (AUTO) 7 % (0-12); NEUTROPHILS # (AUTO) 5.5 10^3/uL (1.8-7.8); NEUTROPHILS % (AUTO) 73 % (42-75); PLATELET COUNT 162 10^3/uL (130-400); WHITE BLOOD COUNT 7.4 10^3/uL (4.3-11.0)
[2022-08-14 06:28] LABS: ALBUMIN 3.2 GM/DL (3.2-4.5)
[2022-08-14 06:29] LABS: POTASSIUM 3.8 MMOL/L (3.6-5.0)
[2022-08-14 06:30] LABS: CALCIUM 8.5 MG/DL (8.5-10.1)
[2022-08-14 06:31] LABS: TOTAL PROTEIN 5.5 GM/DL (6.4-8.2)
[2022-08-14 06:33] LABS: BILIRUBIN,TOTAL 0.3 MG/DL (0.1-1.0)
[2022-08-14 06:34] LABS: CREATININE SERUM 0.7 MG/DL (0.60-1.30)
--- NOTE | 2022-08-14 07:18 | Progress Note - Hospitalist ---
Subjective HPI/CC On Admission Date Seen by Provider: Aug 14, 2022 Time Seen by Provider: 11:00 Chief complaint: UTI with inability to ambulate HPI: This is a 76-year-old female who moved here in December and her son takes care of her at home who presented to the ER with inability to ambulate. Apparently she was found to be very disheveled and poor hygiene and since her power wheelchair was not working she would defecate and urinate and sit in it all day. She does have breakdown on her buttocks and she does have a UTI. Subjective/Events-last exam Patient doing about the same Pseudomonas in urine culture we will switch to cefepime Sleeping currently Review of Systems General: Fatigue, Malaise Objective Exam Vital Signs Vital Signs Date Time Temp Pulse Resp B/P (MAP) Pulse Ox O2 Delivery O2 Flow Rate FiO2 08/14/22 12:00 36.5 76 18 134/80 (98) 97 Room Air 08/14/22 09:18 0.00 08/12/22 22:24 21 Capillary Refill : Less Than 3 Seconds General Appearance: No Apparent Distress, WD/WN, Chronically ill Respiratory: Lungs Clear, Normal Breath Sounds Cardiovascular: Regular Rate, Rhythm Results/Procedures Lab Laboratory Tests 08/14/22 05:30 Patient resulted labs reviewed. Assessment/Plan Assessment and Plan Assess & Plan/Chief Complaint Assessment: Inability to ambulate UTI-Did not notice DC Rocephin start cefepime Poor social situation Buttock breakdown RLS Hypertension Osteoarthritis Hyperlipidemia Plan: Treat UTI Wound care may be needed PT and OT BEULAH PAREKH DO Aug 14, 2022 07:18
[2022-08-14 07:48] VITALS: BP 121/70
[2022-08-14] MEDS: SENNOSIDES 8.6 MG (SENOKOT) TAB PO SCH ×2 (09:09→20:06)
[2022-08-14] MEDS: PANTOPRAZOLE 20 MG TABLET (PROTONIX) PO SCH (09:09)
[2022-08-14] MEDS: MELOXICAM 7.5 MG (MOBIC) TABLET PO SCH (09:09)
[2022-08-14] MEDS: DOCUSATE SODIUM 100 MG (COLACE) CAP PO SCH ×2 (09:09→20:06)
[2022-08-14 12:00] VITALS: BP 134/80
[2022-08-14] MEDS: CEFEPIME INJECTION 1,000 MG in NS (IVPB) 50 ML IV SCH ×2 (15:56→23:02)
[2022-08-14 16:22] VITALS: BP 141/80
[2022-08-14 19:58] VITALS: BP 138/63
[2022-08-14] MEDS: ENOXAPARIN 40 MG/0.4 ML (LOVENOX) SYR SC SCH (20:07)
[2022-08-14] MEDS: PRAMIPEXOLE 0.125 MG (MIRAPEX) TABLET PO SCH (20:07)
[2022-08-14 23:53] VITALS: BP 112/62
[2022-08-15 03:50] VITALS: BP 129/68
[2022-08-15] MEDS: CEFEPIME INJECTION 1,000 MG in NS (IVPB) 50 ML IV SCH ×4 (05:29→23:54)
[2022-08-15 06:20] LABS: BASOPHILS % (AUTO) 0 % (0-10); EOSINOPHILS % (AUTO) 0 % (0-10); HEMATOCRIT 30 % (35-52); HEMOGLOBIN 9.8 g/dL (11.5-16.0); LYMPHOCYTES # (AUTO) 1.2 10^3/uL (1.0-4.0); LYMPHOCYTES % (AUTO) 17 % (12-44); MEAN CORPUSCULAR HEMOGLOBIN 27 pg (25-34); MEAN CORPUSCULAR HGB CONC 33 g/dL (32-36); MEAN CORPUSCULAR VOLUME 81 fL (80-99); MEAN PLATELET VOLUME 10.1 fL (9.0-12.2); MONOCYTES # (AUTO) 0.5 10^3/uL (0.0-1.0); MONOCYTES % (AUTO) 7 % (0-12); NEUTROPHILS # (AUTO) 5.2 10^3/uL (1.8-7.8); NEUTROPHILS % (AUTO) 75 % (42-75); PLATELET COUNT 173 10^3/uL (130-400); WHITE BLOOD COUNT 6.9 10^3/uL (4.3-11.0)
[2022-08-15 06:30] LABS: ALBUMIN 3.3 GM/DL (3.2-4.5)
[2022-08-15 06:32] LABS: CALCIUM 8.8 MG/DL (8.5-10.1)
[2022-08-15 06:33] LABS: TOTAL PROTEIN 5.7 GM/DL (6.4-8.2)
[2022-08-15 06:35] LABS: BILIRUBIN,TOTAL 0.4 MG/DL (0.1-1.0)
[2022-08-15 06:37] LABS: CREATININE SERUM 0.75 MG/DL (0.60-1.30)
[2022-08-15 07:47] VITALS: BP 108/67
[2022-08-15] MEDS: SENNOSIDES 8.6 MG (SENOKOT) TAB PO SCH ×2 (08:16→21:41)
[2022-08-15] MEDS: PANTOPRAZOLE 20 MG TABLET (PROTONIX) PO SCH (08:16)
[2022-08-15] MEDS: DOCUSATE SODIUM 100 MG (COLACE) CAP PO SCH ×2 (08:16→21:40)
[2022-08-15] MEDS: MELOXICAM 7.5 MG (MOBIC) TABLET PO SCH (08:17)
[2022-08-15] MEDS ORDERED: ACET-2267 PO (09:36)
[2022-08-15] MEDS ORDERED: LISI1TAB44 PO (09:36)
[2022-08-15] MEDS ORDERED: MULT-1136 PO (09:37)
--- NOTE | 2022-08-15 10:59 | Physical Therapy Daily Note ---
PT Daily Note-Current Subjective Pt found lying in bed upon entry. Agreed to PT. Reports that she is having some pain in her hips that radiates down her legs. R knee pain reported /c standing. Pain Section J - Health Conditions 1. Rarely or not at all 2. Occasionally 3. Frequently 4. Almost constantly 8. Unable to answer Pain Effect on Sleep: 1 Pain Interference with Therapy: 1 Pain Interference w/Day-to-Day: 1 Mental Status Patient Orientation: Person, Place Attachments: Sherman Catheter Transfers SCALE: Activities may be completed with or without assistive devices. 2-Kgfcavbdnb-kuwauze completes the activity by him/herself with no assistance from a helper. 5-Set-up or Clean-up Assistance-helper sets up or cleans up; patient completes activity. [place] assists only prior to or following the activity. 4-Supervision or Touching Assistance-helper provides verbal cues and/or touching/steadying and/or contact guard assistance as patient completes activity. Assistance may be provided throughout the activity or intermittently. 3-Partial/Moderate Assistance-helper does LESS THAN HALF the effort. [place] lifts, holds or supports trunk or limbs, but provides less than half the effort. 2-Substantial/Maximal Assistance-helper does MORE THAN HALF the effort. [place] lifts or holds trunk or limbs and provides more than half the effort. 9-Pgicrhiwe-ueoabb does ALL the effort. Patient does none of the effort to complete the activity. Or, the assistance of 2 or more helpers is required for the patient to complete the activity. If activity was not attempted, code reason: 7-Patient Refused. 9-Not Applicable-not attempted and the patient did not perform the activity before the current illness, exacerbation or injury. 10-Not Attempted due to Environmental Limitations-(lack of equipment, weather restraints, etc.). 88-Not Attempted due to Medical Conditions or Safety Concerns. Sit to Lying (QC): 4 Lying to Sitting/Side of Bed(Q: 4 Sit to Stand (QC): 2 Pt SBA /c sit to lying and lying to sitting transfers. MAX lifting assistance /c sit to stand transfer. Sit to stand transfer completed 3x from edge of bed. Pt stands for up to 15 seconds before requiring a short seated rest break. Weight Bearing Right Lower Extremity: Right Non Weight Bearing Left Lower Extremity: Left Non Weight Bearing Gait Training Does the Patient Walk?: No and Walking Goal IS indicated Assessment Current Status: Fair Progress Pt completes bed mobility /c SBA for safety due to strength and balance deficits. Sit to stand transfer completed 3x from edge of bed /c MAX lifting assistance. Pt displays poor posture while standing and was given verbal cues for correct posture. Pt posture then slightly improves but is unable to stand /c proper posture. Pt is able to stand at FWW for up to 15 seconds before requiring a short seated rest break. Continue to progress per POC to improve strength, endurance, and functional ability. PT Commercial Leasing Manager Goals Residential Goals PT Residential Goals Time Frame: Aug 27, 2022 Roll Left & Right (QC): 6 Sit to Lying (QC): 6 Lying-Sitting on Side/Bed(QC): 6 Sit to Stand (QC): 3 Chair/Sqy-oj-Cibjm Xfer(QC): 3 Toilet Transfer (QC): 3 Does the Patient Walk: No and Walking Goal NOT indicated PT Plan Treatment/Plan Treatment Plan: Continue Plan of Care Treatment Plan: Bed Mobility, Education, Functional Activity Jelani, Functional Strength, Gait, Safety, Therapeutic Exercise, Transfers Treatment Duration: Aug 27, 2022 Frequency: 6 times per week Estimated Hrs Per Day: .25 hour per day Patient and/or Family Agrees t: Yes Time Time In: 832 Time Out: 843 DATE: Aug 15, 2022 Total Billed Treatment Time: 11 Total Billed Treatment 1 visit FA x 1 KIMBERLEY TROTTER DRAFTER AUTOMOTIVE DESIGN LAYOUT Aug 15, 2022 10:59
[2022-08-15 11:38] VITALS: BP 126/60
--- NOTE | 2022-08-15 11:44 | Progress Note ---
Subjective Subjective/Events-last exam States she is feeling better today than yesterday. Denies new concerns. Moved from [place] to [place] in December and hasn't been able to get paperwork things completed, has been short on food supply and air conditioning was not working well. She states those things altogether were causing her weakness. Does not walk at baseline for last couple of years since a cervical spine injury and surgery. She is able to transfer and uses bedside commode at home. She and her son have been discussing halfway care. She fell out of her wheelchair in July. Objective Exam Last Set of Vital Signs Vital Signs Date Time Temp Pulse Resp B/P (MAP) Pulse Ox O2 Delivery O2 Flow Rate FiO2 08/15/22 11:38 36.5 75 18 126/60 (82) 97 Room Air 08/14/22 09:18 0.00 08/12/22 22:24 21 Capillary Refill : Less Than 3 Seconds I&O Intake and Output 08/14/22 23:59 Intake Total 1790 ml Output Total 3450 ml Balance -1660 ml Intake Oral 1790 ml Output Urine Total 3450 ml General: Alert, No Acute Distress Lungs: Clear to Auscultation, Normal Air Movement Heart: Regular Rate, No Murmurs Abdomen: Normal Bowel Sounds, Soft Extremities: No Edema, Other (excoriations and faint erythema) Neuro: Normal Speech Psych/Mental Status: Mood NL Results/Procedures Lab Laboratory Tests 08/15/22 05:40: White Blood Count 6.9, Red Blood Count 3.69L, Hemoglobin 9.8L, Hematocrit 30L, Mean Corpuscular Volume 81, Mean Corpuscular Hemoglobin 27, Mean Corpuscular Hemoglobin Concent 33, Red Cell Distribution Width 14.6H, Platelet Count 173, Mean Platelet Volume 10.1, Immature Granulocyte % (Auto) 1, Neutrophils (%) (Auto) 75, Lymphocytes (%) (Auto) 17, Monocytes (%) (Auto) 7, Eosinophils (%) (Auto) 0, Basophils (%) (Auto) 0, Neutrophils # (Auto) 5.2, Lymphocytes # (Auto) 1.2, Monocytes # (Auto) 0.5, Eosinophils # (Auto) 0.0, Basophils # (Auto) 0.0, Immature Granulocyte # (Auto) 0.1, Sodium Level 137, Potassium Level 4.0, Chloride Level 105, Carbon Dioxide Level 24, Anion Gap 8, Blood Urea Nitrogen 11, Creatinine 0.75, Estimat Glomerular Filtration Rate 83, BUN/Creatinine Ratio 15, Glucose Level 130H, Calcium Level 8.8, Corrected Calcium 9.4, Total Bilirubin 0.4, Aspartate Amino Transf (AST/SGOT) 10, Alanine Aminotransferase (ALT/SGPT) 13, Alkaline Phosphatase 78, Total Protein 5.7L, Albumin 3.3 Microbiology 08/12/22 Urine Culture - Preliminary, Resulted Pseudomonas aeruginosa Assessment/Plan Assessment/Plan (1) UTI (urinary tract infection) Status: Acute Assessment & Plan: Urine culture with pseudomonas, sensitivity pending. Continue cefepime. Qualifiers: Qualified Codes: N30.01 - Acute cystitis with hematuria (2) Hypertension Status: Chronic Assessment & Plan: BP normal currently, resume home med if needed (3) Wheelchair dependent Status: Chronic Assessment & Plan: Unable to function in home currently, PT, OT, social security specialist, plan for SNF on d/c. (4) Hyperlipidemia Status: Chronic Assessment & Plan: Continue home statin. (5) Frequent falls Status: Chronic (6) DVT prophylaxis Status: Acute Assessment & Plan: Enoxaparin RAFAELA VALENTIN MD Aug 15, 2022 11:44
--- NOTE | 2022-08-15 15:44 | Occupational Therapy Eval ---
OT Evaluation-General/PLF Medical Diagnosis Admission Date Aug 12, 2022 at 21:43 Medical Diagnosis: general weakness /UTI Onset Date: Aug 12, 2022 Therapy Diagnosis Therapy Diagnosis: decr self care, decr funct mobility, decr act kaleb, weakness Precautions Precautions/Isolations: Standard Precautions Referral Physician: Dr. Barton Referral Reason: Evaluation/Treatment Medical History Pertinent Medical History: Arthritis, GERD, HTN Additional Medical History Back surgery. Chronic back pain. Sciatica. Restless legs. Chronic edema. Current History Pt reportedly became overheated at home and also thought she might have a UTI. She has woulds on buttocks and also R gonzales Social History Home: Single Level Current Living Status: Children (Lives with son) ADL-Prior Level of Function SCALE: Activities may be completed with or without assistive devices. 3-Rspklopvvl-dojwmop completes the activity by him/herself with no assistance from a helper. 5-Set-up or Clean-up Assistance-helper sets up or cleans up; patient completes activity. [place] assists only prior to or following the activity. 4-Supervision or Touching Assistance-helper provides verbal cues and/or touching/steadying and/or contact guard assistance as patient completes activity. Assistance may be provided throughout the activity or intermittently. 3-Partial/Moderate Assistance-helper does LESS THAN HALF the effort. [place] lifts, holds or supports trunk or limbs, but provides less than half the effort. 2-Substantial/Maximal Assistance-helper does MORE THAN HALF the effort. [place] lifts or holds trunk or limbs and provides more than half the effort. 0-Nucjmvfcc-vnppko does ALL the effort. Patient does none of the effort to complete the activity. Or, the assistance of 2 or more helpers is required for the patient to complete the activity. If activity was not attempted, code reason: 7-Patient Refused. 9-Not Applicable-not attempted and the patient did not perform the activity before the current illness, exacerbation or injury. 10-Not Attempted due to Environmental Limitations-(lack of equipment, weather restraints, etc.). 88-Not Attempted due to Medical Conditions or Safety Concerns. ADL PLOF Comments She uses a power chair at home and has been able to transfer herself to [facility]. She can't get her power chair into the bathroom so takes sponge baths. She is able to feed herself and get dressed but her son does cooking and housework. Self Care: Needed Some Help Functional Cognition: Independent OT Current Status Subjective Pt seen in room, up in bed, agreeable to OT. No pain reported. Appearance Alert, cooperative Mental Status/Objective Attachments: Sherman Catheter Current Hand Dominance: Right Upper Extremity ROM Grossly WFL bilat Upper Extremity Strength Grossly functional for bed mobility ADL-Treatment ADL-Current Pt was able to move supine to sit EOB with min assist. Transferred to [facility] with assist of two people (she didn't assist) and wheeled into bathroom. She reported difficulty with toilet hygiene at home and said she couldn't reach her bottom to adequate cleaning. Nursing was going to give her a shower using shower chair. She reported that she is planning to discharge to [facility]. Education OT Patient Education: Purpose of tx/functional activities, Rehab process Teaching Recipient: Patient Teaching Methods: Discussion Response to Teaching: Verbalize Understanding OT Accounting Recruiter Goals Fpc Goals Time Frame: Aug 20, 2022 Eating (QC): 6 Oral Hygiene (QC): 5 Toileting Hygiene (QC): 3 Shower/Bathe Self (QC): 3 Upper Body Dressing (QC): 5 Lower Body Dressing (QC): 3 On/Off Footwear (QC): 3 Additional Goals: 1-Demonstrate ADL Tasks, 2-Verbalize Understanding, 3- ImproveStrength/Jelani 1=Demonstrate adherence to instructed precautions during ADL tasks. 2=Patient will verbalize/demonstrate understanding of assistive devices/modifications for ADL. 3=Patient will improve strength/tolerance for activity to enable patient to perform ADL's. OT Education/Plan Problem List/Assessment Assessment: Decreased Activ Tolerance, Decreased UE Strength, Dependent Transfers, Impaired Bed Mobility, Impaired Self-Care Skills Discharge Recommendations Plan Pt would benefit from skilled OT to increase her independence in basic self care and to decrease caregiver burden. Plan/Recommendations: Continue POC Treatment Plan/Plan of Care Treatment,Training & Education: Yes Patient would benefit from OT for education, treatment and training to promote independence in ADL's, mobility, safety and/or upper extremity function for ADL's. Plan of Care: ADL Retraining, Functional Mobility, UE Funct Exercise/Act Treatment Duration: Aug 20, 2022 Frequency: 5 times per week (4-5 times a week) Estimated Hrs Per Day: .25 hour per day Agreement: Yes Rehab Potential: Fair Time Start Time: 14:03 Stop Time: 14:14 DATE: Aug 15, 2022 Total Time Billed (hr/min): 11 Billed Treatment Time visit, 11 minutes evaluation moderate intensity SHARON GOODMAN OT Aug 15, 2022 15:44
[2022-08-15 17:15] VITALS: BP 118/64
[2022-08-15 20:20] VITALS: BP 121/68
[2022-08-15] MEDS: ENOXAPARIN 40 MG/0.4 ML (LOVENOX) SYR SC SCH (21:41)
[2022-08-15 23:50] VITALS: BP 117/57
[2022-08-16] VITALS (7 sets, daily range): BP systolic 109–141; BP diastolic 57–66
[2022-08-16] MEDS: CEFEPIME INJECTION 1,000 MG in NS (IVPB) 50 ML IV SCH ×4 (05:27→23:00)
[2022-08-16 06:11] LABS: BASOPHILS % (AUTO) 0 % (0-10); EOSINOPHILS % (AUTO) 0 % (0-10); HEMATOCRIT 34 % (35-52); HEMOGLOBIN 10.9 g/dL (11.5-16.0); LYMPHOCYTES # (AUTO) 1.4 10^3/uL (1.0-4.0); LYMPHOCYTES % (AUTO) 19 % (12-44); MEAN CORPUSCULAR HEMOGLOBIN 26 pg (25-34); MEAN CORPUSCULAR HGB CONC 32 g/dL (32-36); MEAN CORPUSCULAR VOLUME 81 fL (80-99); MEAN PLATELET VOLUME 10.9 fL (9.0-12.2); MONOCYTES # (AUTO) 0.5 10^3/uL (0.0-1.0); MONOCYTES % (AUTO) 6 % (0-12); NEUTROPHILS # (AUTO) 5.1 10^3/uL (1.8-7.8); NEUTROPHILS % (AUTO) 73 % (42-75); PLATELET COUNT 184 10^3/uL (130-400)
[2022-08-16 06:35] LABS: ALBUMIN 3.6 GM/DL (3.2-4.5); BILIRUBIN,TOTAL 0.4 MG/DL (0.1-1.0); CALCIUM 9.2 MG/DL (8.5-10.1); CREATININE SERUM 0.69 MG/DL (0.60-1.30); POTASSIUM 4.1 MMOL/L (3.6-5.0); TOTAL PROTEIN 6.3 GM/DL (6.4-8.2)
--- NOTE | 2022-08-16 08:42 | Physical Therapy Daily Note ---
PT Daily Note-Current Subjective States that she is doing okay. Pain Section J - Health Conditions 1. Rarely or not at all 2. Occasionally 3. Frequently 4. Almost constantly 8. Unable to answer Pain Effect on Sleep: 1 Pain Interference with Therapy: 1 Pain Interference w/Day-to-Day: 1 Transfers SCALE: Activities may be completed with or without assistive devices. 0-Jttlpjugyb-dexfuee completes the activity by him/herself with no assistance from a helper. 5-Set-up or Clean-up Assistance-helper sets up or cleans up; patient completes activity. [place] assists only prior to or following the activity. 4-Supervision or Touching Assistance-helper provides verbal cues and/or touching/steadying and/or contact guard assistance as patient completes activity. Assistance may be provided throughout the activity or intermittently. 3-Partial/Moderate Assistance-helper does LESS THAN HALF the effort. [place] lifts, holds or supports trunk or limbs, but provides less than half the effort. 2-Substantial/Maximal Assistance-helper does MORE THAN HALF the effort. [place] lifts or holds trunk or limbs and provides more than half the effort. 1-Uvlcevjqx-eevviy does ALL the effort. Patient does none of the effort to complete the activity. Or, the assistance of 2 or more helpers is required for the patient to complete the activity. If activity was not attempted, code reason: 7-Patient Refused. 9-Not Applicable-not attempted and the patient did not perform the activity before the current illness, exacerbation or injury. 10-Not Attempted due to Environmental Limitations-(lack of equipment, weather restraints, etc.). 88-Not Attempted due to Medical Conditions or Safety Concerns. Sit to Stand (QC): 3 Chair/Ayz-ip-Tayle Xfer(QC): 3 Toilet Transfer (QC): 2 Weight Bearing Right Lower Extremity: Right Non Weight Bearing Left Lower Extremity: Left Non Weight Bearing Gait Training Does the Patient Walk?: No and Walking Goal NOT indicated Exercises Seated Therapy Exercises: LE Protocol Seated Reps: 20 Standing: Sit to Stand Standing Reps: 4 Assessment Current Status: Good Progress Patient has considerable weakness in B LE's and difficulty standing. PT Heel Former Goals Heel Former Goals PT Senior Care Goals Time Frame: Aug 27, 2022 Roll Left & Right (QC): 6 Sit to Lying (QC): 6 Lying-Sitting on Side/Bed(QC): 6 Sit to Stand (QC): 3 Chair/Eji-fk-Isekw Xfer(QC): 3 Toilet Transfer (QC): 3 Does the Patient Walk: No and Walking Goal NOT indicated PT Plan Treatment/Plan Treatment Plan: Continue Plan of Care Treatment Plan: Bed Mobility, Education, Functional Activity Jelani, Functional Strength, Gait, Safety, Therapeutic Exercise, Transfers Treatment Duration: Aug 27, 2022 Frequency: 6 times per week Estimated Hrs Per Day: .25 hour per day Patient and/or Family Agrees t: Yes Time Time In: 820 Time Out: 835 DATE: Aug 16, 2022 Total Billed Treatment Time: 15 Total Billed Treatment 1. EX x 15' JAVI EUBANKS PT Aug 16, 2022 08:41
[2022-08-16] MEDS: SENNOSIDES 8.6 MG (SENOKOT) TAB PO SCH ×2 (09:20→20:10)
[2022-08-16] MEDS: DOCUSATE SODIUM 100 MG (COLACE) CAP PO SCH ×2 (09:20→20:10)
[2022-08-16] MEDS: MICONAZOLE 2% POWDER (DESENEX AF) 90 GM TOP SCH ×2 (09:21→20:10)
[2022-08-16] MEDS: MELOXICAM 7.5 MG (MOBIC) TABLET PO SCH (09:21)
[2022-08-16] MEDS: MULTIVIT W/MINERALS TAB (THERAGRAN M) PO SCH (09:21)
--- NOTE | 2022-08-16 13:02 | Progress Note ---
Subjective Subjective/Events-last exam Left foot from mid to heel hurting last 30 to 40 minutes, but she does have trouble with feet and legs hurting on and off over last 8-9 months. Denies other concerns today. Objective Exam Last Set of Vital Signs Vital Signs Date Time Temp Pulse Resp B/P (MAP) Pulse Ox O2 Delivery O2 Flow Rate FiO2 08/16/22 11:47 36.3 77 20 122/58 (79) 99 Room Air 08/16/22 00:33 21 08/14/22 09:18 0.00 Capillary Refill : Less Than 3 Seconds I&O Intake and Output 08/16/22 00:00 Intake Total 2645 ml Output Total 4550 ml Balance -1905 ml Intake Oral 2645 ml Output Urine Total 4550 ml # Bowel Movements 2 General: Alert, No Acute Distress Lungs: Clear to Auscultation Heart: Regular Rate, No Murmurs Abdomen: Normal Bowel Sounds, Soft Neuro: Normal Speech Results/Procedures Lab Laboratory Tests 08/16/22 05:23: White Blood Count 7.0, Red Blood Count 4.22, Hemoglobin 10.9L, Hematocrit 34L, Mean Corpuscular Volume 81, Mean Corpuscular Hemoglobin 26, Mean Corpuscular Hemoglobin Concent 32, Red Cell Distribution Width 14.7H, Platelet Count 184, Mean Platelet Volume 10.9, Immature Granulocyte % (Auto) 1, Neutrophils (%) (A uto) 73, Lymphocytes (%) (Auto) 19, Monocytes (%) (Auto) 6, Eosinophils (%) (Auto) 0, Basophils (%) (Auto) 0, Neutrophils # (Auto) 5.1, Lymphocytes # (Auto) 1.4, Monocytes # (Auto) 0.5, Eosinophils # (Auto) 0.0, Basophils # (Auto) 0.0, Immature Granulocyte # (Auto) 0.1, Sodium Level 139, Potassium Level 4.1, Chloride Level 105, Carbon Dioxide Level 22, Anion Gap 12, Blood Urea Nitrogen 9, Creatinine 0.69, Estimat Glomerular Filtration Rate 90, BUN/Creatinine Ratio 13, Glucose Level 129H, Calcium Level 9.2, Corrected Calcium 9.5, Total Bilirubin 0.4, Aspartate Amino Transf (AST/SGOT) 16, Alanine Aminotransferase (ALT/SGPT) 25, Alkaline Phosphatase 85, Total Protein 6.3L, Albumin 3.6 Microbiology 08/12/22 Urine Culture - Preliminary, Resulted Pseudomonas aeruginosa Assessment/Plan Assessment/Plan (1) UTI (urinary tract infection) Status: Acute Assessment & Plan: Urine culture with pseudomonas, sensitivity pending. Continue cefepime. Qualifiers: Qualified Codes: N30.01 - Acute cystitis with hematuria (2) Hypertension Status: Chronic Assessment & Plan: BP normal currently, resume home med if needed (3) Wheelchair dependent Status: Chronic Assessment & Plan: Unable to function in home currently, PT, OT, social se rvices, plan for SNF on d/c. (4) Hyperlipidemia Status: Chronic Assessment & Plan: Continue home statin. (5) Frequent falls Status: Chronic (6) DVT prophylaxis Status: Acute Assessment & Plan: Enoxaparin RAFAELA VALENTIN MD Aug 16, 2022 13:02
[2022-08-16] MEDS: HYDROmorphone 2 MG/ML VIAL (DILAUDID) IV PRN (15:17)
[2022-08-16] MEDS: PRAMIPEXOLE 0.125 MG (MIRAPEX) TABLET PO SCH (20:10)
[2022-08-16] MEDS: ENOXAPARIN 40 MG/0.4 ML (LOVENOX) SYR SC SCH (20:16)
[2022-08-17 03:20] VITALS: BP 130/72
[2022-08-17] MEDS: CEFEPIME INJECTION 1,000 MG in NS (IVPB) 50 ML IV SCH ×4 (05:00→23:19)
[2022-08-17 05:04] LABS: BASOPHILS % (AUTO) 1 % (0-10); EOSINOPHILS % (AUTO) 0 % (0-10); HEMATOCRIT 29 % (35-52); HEMOGLOBIN 9.5 g/dL (11.5-16.0); LYMPHOCYTES # (AUTO) 1.3 10^3/uL (1.0-4.0); LYMPHOCYTES % (AUTO) 21 % (12-44); MEAN CORPUSCULAR HEMOGLOBIN 26 pg (25-34); MEAN CORPUSCULAR HGB CONC 33 g/dL (32-36); MEAN CORPUSCULAR VOLUME 81 fL (80-99); MEAN PLATELET VOLUME 9.4 fL (9.0-12.2); MONOCYTES # (AUTO) 0.5 10^3/uL (0.0-1.0); MONOCYTES % (AUTO) 7 % (0-12); NEUTROPHILS # (AUTO) 4.5 10^3/uL (1.8-7.8); NEUTROPHILS % (AUTO) 71 % (42-75); PLATELET COUNT 186 10^3/uL (130-400); WHITE BLOOD COUNT 6.3 10^3/uL (4.3-11.0)
[2022-08-17 05:16] LABS: ALBUMIN 3.2 GM/DL (3.2-4.5)
[2022-08-17 05:17] LABS: CALCIUM 8.8 MG/DL (8.5-10.1)
[2022-08-17 05:18] LABS: TOTAL PROTEIN 5.7 GM/DL (6.4-8.2)
[2022-08-17 05:20] LABS: BILIRUBIN,TOTAL 0.4 MG/DL (0.1-1.0)
[2022-08-17 05:22] LABS: CREATININE SERUM 0.68 MG/DL (0.60-1.30)
[2022-08-17 08:51] VITALS: BP 124/70
[2022-08-17] MEDS: MELOXICAM 7.5 MG (MOBIC) TABLET PO SCH (09:04)
[2022-08-17] MEDS: DOCUSATE SODIUM 100 MG (COLACE) CAP PO SCH ×2 (09:04→20:25)
[2022-08-17] MEDS: MULTIVIT W/MINERALS TAB (THERAGRAN M) PO SCH (09:04)
[2022-08-17] MEDS: SENNOSIDES 8.6 MG (SENOKOT) TAB PO SCH ×2 (09:05→20:25)
[2022-08-17] MEDS: MICONAZOLE 2% POWDER (DESENEX AF) 90 GM TOP SCH ×2 (09:05→20:25)
--- NOTE | 2022-08-17 09:36 | Occupational Ther Daily Note ---
OT Current Status-Daily Note Subjective Up in bed awake and alert, agreeable to OT services for ADLS. Pain Numeric Pain Scale: 0-No Pain Mental Status/Objective Patient Orientation: Person, Place Attachments: Vora Catheter ADL-Treatment Patient reports she does not always know if and when bowel progresses. OT transferred Patient to recliner and cleaned up BM from bed and vora tube wiped clean w/ bath wipes. Once in recliner patient provided shampoo cap, deodorant, soap washcloth and oral care supplies Therapy Code Descriptions/Definitions Functional [place] Measure: 0=Not Assessed/NA 4=Minimal Assistance 1=Total Assistance 5=Supervision or Setup 2=Maximal Assistance 6=Modified [place] 3=Moderate Assistance 7=Complete IndependenceSCALE: Activities may be completed with or without assistive devices. 3-Guunsjqxhu-kqcprcq completes the activity by him/herself with no assistance from a helper. 5-Set-up or Clean-up Assistance-helper sets up or cleans up; patient completes activity. [place] assists only prior to or following the activity. 4-Supervision or Touching Assistance-helper provides verbal cues and/or touching/steadying and/or contact guard assistance as patient completes activity. Assistance may be provided throughout the activity or intermittently. 3-Partial/Moderate Assistance-helper does LESS THAN HALF the effort. [place] lifts, holds or supports trunk or limbs, but provides less than half the effort. 2-Substantial/Maximal Assistance-helper does MORE THAN HALF the effort. [place] l ifts or holds trunk or limbs and provides more than half the effort. 0-Pztecigki-aoumws does ALL the effort. Patient does none of the effort to complete the activity. Or, the assistance of 2 or more helpers is required for the patient to complete the activity. If activity was not attempted, code reason: 7-Patient Refused. 9-Not Applicable-not attempted and the patient did not perform the activity before the current illness, exacerbation or injury. 10-Not Attempted due to Environmental Limitations-(lack of equipment, weather restraints, etc.). 88-Not Attempted due to Medical Conditions or Safety Concerns. Eating (QC): 6 Oral Hygiene (QC): 5 Toileting Hygiene (QC): 2 Toilet Transfer (QC): 3 Education OT Patient Education: Correct positioning, Modified ADL techniques, Progress toward Goal/Update tx plan, Purpose of tx/functional activities, Reviewed precautions, Rehab process, Safety issues, Transfer techniques, Use of adapted equipment Teaching Recipient: Patient Teaching Methods: Demonstration, Discussion Response to Teaching: Verbalize Understanding, Reinforcement Needed OT Jewelry Cutter Goals Residential Goals Time Frame: Aug 20, 2022 Eating (QC): 6 Oral Hygiene (QC): 5 Toileting Hygiene (QC): 3 Shower/Bathe Self (QC): 3 Upper Body Dressing (QC): 5 Lower Body Dressing (QC): 3 On/Off Footwear (QC): 3 Additional Goals: 1-Demonstrate ADL Tasks, 2-Verbalize Understanding, 3- ImproveStrength/Jelani 1=Demonstrate adherence to instructed precautions during ADL tasks. 2=Patient will verbalize/demonstrate understanding of assistive devices/modifications for ADL. 3=Patient will improve strength/tolerance for activity to enable patient to perform ADL's. OT Education/Plan Problem List/Assessment Assessment: Decreased Activ Tolerance, Decreased Safety Aware, Decreased UE Strength, Impaired Coordination, Impaired Funct Balance, Impaired Self-Care Skills, Restricted Funct UE ROM Discharge Recommendations Plan/Recommendations: Continue POC Treatment Plan/Plan of Care Patient would benefit from OT for education, treatment and training to promote independence in ADL's, mobility, safety and/or upper extremity function for ADL's. Plan of Care: ADL Retraining, Functional Mobility, UE Funct Exercise/Act Treatment Duration: Aug 20, 2022 Frequency: 5 times per week (4-5 times a week) Estimated Hrs Per Day: .25 hour per day Agreement: Yes Rehab Potential: Fair Time Start Time: 09:00 Stop Time: 09:27 DATE: Aug 17, 2022 Total Time Billed (hr/min): 27 Billed Treatment Time ADLs 2 27 min YVONNE WEST OT Aug 17, 2022 09:36
--- NOTE | 2022-08-17 10:41 | Physical Therapy Daily Note ---
PT Daily Note-Current Subjective Pt found lying in bed upon entry. Agreed to PT. Reports she is having pain from her hips down to her feet. Does not rate pain. Pain Section J - Health Conditions 1. Rarely or not at all 2. Occasionally 3. Frequently 4. Almost constantly 8. Unable to answer Pain Effect on Sleep: 1 Pain Interference with Therapy: 1 Pain Interference w/Day-to-Day: 1 Mental Status Patient Orientation: Person, Place Attachments: Sherman Catheter Transfers SCALE: Activities may be completed with or without assistive devices. 1-Lwtyxnxnhs-jbmvorz completes the activity by him/herself with no assistance from a helper. 5-Set-up or Clean-up Assistance-helper sets up or cleans up; patient completes activity. [place] assists only prior to or following the activity. 4-Supervision or Touching Assistance-helper provides verbal cues and/or touching/steadying and/or contact guard assistance as patient completes activity. Assistance may be provided throughout the activity or intermittently. 3-Partial/Moderate Assistance-helper does LESS THAN HALF the effort. [place] lifts, holds or supports trunk or limbs, but provides less than half the effort. 2-Substantial/Maximal Assistance-helper does MORE THAN HALF the effort. [place] lifts or holds trunk or limbs and provides more than half the effort. 9-Vbmfimslu-xfkokz does ALL the effort. Patient does none of the effort to complete the activity. Or, the assistance of 2 or more helpers is required for the patient to complete the activity. If activity was not attempted, code reason: 7-Patient Refused. 9-Not Applicable-not attempted and the patient did not perform the activity before the current illness, exacerbation or injury. 10-Not Attempted due to Environmental Limitations-(lack of equipment, weather restraints, etc.). 88-Not Attempted due to Medical Conditions or Safety Concerns. Sit to Lying (QC): 3 Lying to Sitting/Side of Bed(Q: 3 Sit to Stand (QC): 3 Pt completes sit to lying and lying to sitting transfers /c MIN LE lifting assistance. Completes sit to stand transfer /c MIN-MOD lifting assistance. Verbal cues required for sequencing. Completes sit to stand transfer 5x. Weight Bearing Right Lower Extremity: Right Non Weight Bearing Left Lower Extremity: Left Non Weight Bearing Gait Training Does the Patient Walk?: No and Walking Goal IS indicated Assessment Current Status: Fair Progress Pt completes all bed mobility /c MIN assist for LE lifting/lowering. MIN-MOD assist /c sit to stand transfers. Verbal cues for correct sequencing and sheldon ding posture. Sit to stand completed 5x from edge of bed. Pt stands at FWW for 10-15 seconds at a time before requiring a seated rest break. Continue to progress per POC to improve strength, endurance, and functional ability. PT Chcf Goals Chcf Goals PT Outsole Beveler Goals Time Frame: Aug 27, 2022 Roll Left & Right (QC): 6 Sit to Lying (QC): 6 Lying-Sitting on Side/Bed(QC): 6 Sit to Stand (QC): 3 Chair/Wun-od-Byupt Xfer(QC): 3 Toilet Transfer (QC): 3 Does the Patient Walk: No and Walking Goal NOT indicated PT Plan Treatment/Plan Treatment Plan: Continue Plan of Care Treatment Plan: Bed Mobility, Education, Functional Activity Jelani, Functional Strength, Gait, Safety, Therapeutic Exercise, Transfers Treatment Duration: Aug 27, 2022 Frequency: 6 times per week Estimated Hrs Per Day: .25 hour per day Patient and/or Family Agrees t: Yes Time Time In: 846 Time Out: 904 DATE: Aug 17, 2022 Total Billed Treatment Time: 18 Total Billed Treatment 1 visit FA x 1 KIMBERLEY TROTTER COSMETICIAN APPRENTICE Aug 17, 2022 10:41
[2022-08-17 11:08] VITALS: BP 120/72
[2022-08-17 16:41] VITALS: BP 148/66
--- NOTE | 2022-08-17 17:45 | Progress Note ---
Subjective Subjective/Events-last exam Patient feeling much better this AM. States that she is very motivated to get back on her feet. Tolerating PO diet. She worked with PT well today. Denies chest pain, shortness of breath or abdominal pain. Review of Systems General: Fatigue, Malaise Pulmonary: No Dyspnea, No Cough Cardiovascular: No: Chest Pain, Palpitations Gastrointestinal: No: Nausea, Vomiting, Abdominal Pain, Diarrhea, Constipation Neurological: Weakness, Incoordination Objective Exam Last Set of Vital Signs Vital Signs Date Time Temp Pulse Resp B/P (MAP) Pulse Ox O2 Delivery O2 Flow Rate FiO2 08/17/22 16:41 36.6 80 18 148/66 (93) 97 Room Air 08/17/22 03:20 0.00 0.00 08/16/22 00:33 21 Capillary Refill : Less Than 3 Seconds I&O Intake and Output 08/17/22 00:00 Intake Total 3885 ml Output Total 4425 ml Balance -540 ml Intake Oral 3885 ml Output Urine Total 4425 ml # Bowel Movements 1 General: Alert, Oriented X3, No Acute Distress Lungs: Clear to Auscultation, Normal Air Movement Heart: Regular Rate, No Murmurs Abdomen: Normal Bowel Sounds, Soft, No Tenderness, No Masses Extremities: No Edema, No Tenderness/Swelling Neuro: Normal Speech Results/Procedures Lab Laboratory Tests 08/17/22 04:58: White Blood Count 6.3, Red Blood Count 3.60L, Hemoglobin 9.5L, Hematocrit 29L, Mean Corpuscular Volume 81, Mean Corpuscular Hemoglobin 26, Mean Corpuscular Hemoglobin Concent 33, Red Cell Distribution Width 14.7H, Platelet Count 186, Mean Platelet Volume 9.4, Immature Granulocyte % (Auto) 1, Neutrophils (%) (Auto) 71, Lymphocytes (%) (Auto) 21, Monocytes (%) (Auto) 7, Eosinophils (%) (Auto) 0, Basophils (%) (Auto) 1, Neutrophils # (Auto) 4.5, Lymphocytes # (Auto) 1.3, Monocytes # (Auto) 0.5, Eosinophils # (Auto) 0.0, Basophils # (Auto) 0.0, Immature Granulocyte # (Auto) 0.0, Sodium Level 138, Potassium Level 4.0, Chloride Level 105, Carbon Dioxide Level 24, Anion Gap 9, Blood Urea Nitrogen 13, Creatinine 0.68, Estimat Glomerular Filtration Rate 91, BUN/Creatinine Ratio 19, Glucose Level 138H, Calcium Level 8.8, Corrected Calcium 9.4, Total Bilirubin 0.4, Aspartate Amino Transf (AST/SGOT) 14, Alanine Aminotransferase (ALT/SGPT) 21, Alkaline Phosphatase 74, Total Protein 5.7L, Albumin 3.2 Microbiology 08/12/22 Urine Culture - Final, Complete Pseudomonas aeruginosa Assessment/Plan Assessment/Plan (1) UTI (urinary tract infection) Status: Acute Assessment & Plan: Urine culture with pseudomonas, sensitivity pending. Continue cefepime. 08/17: [place]ic[place] sensitive, encourage PO hydration Qualifiers: Qualified Codes: N30.01 - Acute cystitis with hematuria (2) Hypertension Status: Chronic Assessment & Plan: BP normal currently, resume home med if needed (3) Wheelchair dependent Status: Chronic Assessment & Plan: Unable to function in home currently, PT, OT, social worker school, plan for SNF on d/c. (4) Hyperlipidemia Status: Chronic Assessment & Plan: Continue home statin. (5) Frequent falls Status: Chronic (6) DVT prophylaxis Status: Acute Assessment & Plan: Enoxaparin YOLIS OCASIO MD Aug 17, 2022 17:45
[2022-08-17 19:52] VITALS: BP 125/60
[2022-08-17] MEDS: PRAMIPEXOLE 0.125 MG (MIRAPEX) TABLET PO SCH (20:25)
[2022-08-17] MEDS: ENOXAPARIN 40 MG/0.4 ML (LOVENOX) SYR SC SCH (21:45)
[2022-08-17 23:23] VITALS: BP 128/61
[2022-08-18] MEDS: CEFEPIME INJECTION 1,000 MG in NS (IVPB) 50 ML IV SCH ×3 (05:37→17:30)
[2022-08-18 06:00] LABS: BASOPHILS % (AUTO) 0 % (0-10); EOSINOPHILS % (AUTO) 0 % (0-10); HEMATOCRIT 31 % (35-52); HEMOGLOBIN 10.1 g/dL (11.5-16.0); LYMPHOCYTES # (AUTO) 1.1 10^3/uL (1.0-4.0); LYMPHOCYTES % (AUTO) 16 % (12-44); MEAN CORPUSCULAR HEMOGLOBIN 27 pg (25-34); MEAN CORPUSCULAR HGB CONC 33 g/dL (32-36); MEAN CORPUSCULAR VOLUME 81 fL (80-99); MEAN PLATELET VOLUME 9.7 fL (9.0-12.2); MONOCYTES # (AUTO) 0.3 10^3/uL (0.0-1.0); MONOCYTES % (AUTO) 5 % (0-12); NEUTROPHILS # (AUTO) 5.1 10^3/uL (1.8-7.8); NEUTROPHILS % (AUTO) 77 % (42-75); PLATELET COUNT 198 10^3/uL (130-400); WHITE BLOOD COUNT 6.6 10^3/uL (4.3-11.0)
[2022-08-18 06:03] LABS: ALBUMIN 3.4 GM/DL (3.2-4.5)
[2022-08-18 06:04] LABS: POTASSIUM 4.1 MMOL/L (3.6-5.0)
[2022-08-18 06:05] LABS: CALCIUM 9.1 MG/DL (8.5-10.1)
[2022-08-18 06:06] LABS: TOTAL PROTEIN 5.9 GM/DL (6.4-8.2)
[2022-08-18 06:08] LABS: BILIRUBIN,TOTAL 0.4 MG/DL (0.1-1.0)
[2022-08-18 06:10] LABS: CREATININE SERUM 0.7 MG/DL (0.60-1.30)
[2022-08-18 07:43] VITALS: BP 131/77
[2022-08-18] MEDS: MULTIVIT W/MINERALS TAB (THERAGRAN M) PO SCH (09:31)
[2022-08-18] MEDS: MELOXICAM 7.5 MG (MOBIC) TABLET PO SCH (09:31)
[2022-08-18] MEDS: DOCUSATE SODIUM 100 MG (COLACE) CAP PO SCH ×2 (09:31→19:52)
[2022-08-18] MEDS: MICONAZOLE 2% POWDER (DESENEX AF) 90 GM TOP SCH ×2 (09:32→20:07)
[2022-08-18] MEDS: SENNOSIDES 8.6 MG (SENOKOT) TAB PO SCH ×2 (09:32→19:53)
--- NOTE | 2022-08-18 12:29 | Physical Therapy Daily Note ---
PT Daily Note-Current Subjective Pt found lying in bed upon entry. Agreed to PT. Reports that she continues to have radiating pain in her LEs. Pain Section J - Health Conditions 1. Rarely or not at all 2. Occasionally 3. Frequently 4. Almost constantly 8. Unable to answer Pain Effect on Sleep: 1 Pain Interference with Therapy: 1 Pain Interference w/Day-to-Day: 1 Mental Status Patient Orientation: Person, Place Transfers SCALE: Activities may be completed with or without assistive devices. 9-Chdzexhzuc-jtrcarq completes the activity by him/herself with no assistance from a helper. 5-Set-up or Clean-up Assistance-helper sets up or cleans up; patient completes activity. [place] assists only prior to or following the activity. 4-Supervision or Touching Assistance-helper provides verbal cues and/or touching/steadying and/or contact guard assistance as patient completes activity. Assistance may be provided throughout the activity or intermittently. 3-Partial/Moderate Assistance-helper does LESS THAN HALF the effort. [place] lifts, holds or supports trunk or limbs, but provides less than half the effort. 2-Substantial/Maximal Assistance-helper does MORE THAN HALF the effort. [place] lifts or holds trunk or limbs and provides more than half the effort. 9-Uopepgzui-mybink does ALL the effort. Patient does none of the effort to complete the activity. Or, the assistance of 2 or more helpers is required for the patient to complete the activity. If activity was not attempted, code reason: 7-Patient Refused. 9-Not Applicable-not attempted and the patient did not perform the activity before the current illness, exacerbation or injury. 10-Not Attempted due to Environmental Limitations-(lack of equipment, weather restraints, etc.). 88-Not Attempted due to Medical Conditions or Safety Concerns. Sit to Lying (QC): 4 Lying to Sitting/Side of Bed(Q: 4 Sit to Stand (QC): 3 Chair/Oml-us-Dzmho Xfer(QC): 3 Pt completes all bed mobility /c SBA for safety due to balance deficits and pain. Completes sit to stand transfer 3x /c MOD-MAX lifting assistance. Bed to chair transfer completed /c MAX lifting and pivoting assistance. Weight Bearing Right Lower Extremity: Right Non Weight Bearing Left Lower Extremity: Left Non Weight Bearing Gait Training Does the Patient Walk?: No and Walking Goal IS indicated Assessment Current Status: Fair Progress Pt attempted ambulation from bed to recliner put was unable to advance LLE likely due to weakness. Completes all bed mobility /c SBA. Sit to stands completed /c MOD-MAX assist. Pt able to stand at FWW for up to 20 seconds this visit before requiring a seated rest break. Pt transferred from edge of bed to recliner /c MAX lifting and pivoting assistance. Continue to progress per POC to improve strength, endurance, and functional ability. PT Fci Goals Fci Goals PT Fci Goals Time Frame: Aug 27, 2022 Roll Left & Right (QC): 6 Sit to Lying (QC): 6 Lying-Sitting on Side/Bed(QC): 6 Sit to Stand (QC): 3 Chair/Sdd-bt-Bfgtt Xfer(QC): 3 Toilet Transfer (QC): 3 Does the Patient Walk: No and Walking Goal NOT indicated PT Plan Treatment/Plan Treatment Plan: Continue Plan of Care Treatment Plan: Bed Mobility, Education, Functional Activity Jelani, Functional Strength, Gait, Safety, Therapeutic Exercise, Transfers Treatment Duration: Aug 27, 2022 Frequency: 6 times per week Estimated Hrs Per Day: .25 hour per day Patient and/or Family Agrees t: Yes Time Time In: 901 Time Out: 912 DATE: Aug 18, 2022 Total Billed Treatment Time: 11 Total Billed Treatment 1 visit FA x 1 KIMBERLEY TROTTER [employer]ENDING ENTERPRISES SUPERVISOR Aug 18, 2022 12:29
--- NOTE | 2022-08-18 14:26 | Occupational Ther Daily Note ---
OT Current Status-Daily Note Subjective Prep for transfers, toileting and shower w/ rolling shower chair and bucket, requires 2 person assist. Wound dressing to be replaced following shower. Mental Status/Objective Patient Orientation: Person, Place, Time, Situation ADL-Treatment Therapy Code Descriptions/Definitions Functional [place] Measure: 0=Not Assessed/NA 4=Minimal Assistance 1=Total Assistance 5=Supervision or Setup 2=Maximal Assistance 6=Modified [place] 3=Moderate Assistance 7=Complete IndependenceSCALE: Activities may be completed with or without assistive devices. 8-Yravywjahc-qsnzunt completes the activity by him/herself with no assistance from a helper. 5-Set-up or Clean-up Assistance-helper sets up or cleans up; patient completes activity. [place] assists only prior to or following the activity. 4-Supervision or Touching Assistance-helper provides verbal cues and/or touching/steadying and/or contact guard assistance as patient completes activity. Assistance may be provided throughout the activity or intermittently. 3-Partial/Moderate Assistance-helper does LESS THAN HALF the effort. [place] lifts, holds or supports trunk or limbs, but provides less than half the effort. 2-Substantial/Maximal Assistance-helper does MORE THAN HALF the effort. [place] lifts or holds trunk or limbs and provides more than half the effort. 1-Zikbugtmn-urqnjg does ALL the effort. Patient does none of the effort to complete the activity. Or, the assistance of 2 or more helpers is required for the patient to complete the activity. If activity was not attempted, code reason: 7-Patient Refused. 9-Not Applicable-not attempted and the patient did not perform the activity before the current illness, exacerbation or injury. 10-Not Attempted due to Environmental Limitations-(lack of equipment, weather restraints, etc.). 88-Not Attempted due to Medical Conditions or Safety Concerns. Eating (QC): 6 Oral Hygiene (QC): 5 (sitting in rolling chair) Bathing Location: L Arm, R Arm, L Upper Leg, R Upper Leg, L Lower Leg (in cluding foot), R Lower Leg (including foot), Chest, Abdomen, Buttocks, Perineal Area Shower/Bathe Self (QC): 3 (sitting ntire duration, [facility], OT performed BLE below knees, back, hiar and buttocks) Upper Body Dressing (QC): 4 Lower Body Dressing (QC): 1 On/Off Footwear: 1 (during bathing OT cleansed toes and web spaces, filthy excess debri present) Toileting Hygiene (QC): 1 Toilet Transfer (QC): 1 Education OT Patient Education: Correct positioning, Exercise program, Modified ADL techniques, Progress toward Goal/Update tx plan, Purpose of tx/functional activities, Reviewed precautions, Rehab process, Safety issues, Transfer techniques, Use of adapted equipment Teaching Recipient: Patient Teaching Methods: Demonstration, Discussion Response to Teaching: Verbalize Understanding, Reinforcement Needed OT [employer] Mining Machine Helper Goals Long [employer] Mining Machine Helper Goals Time Frame: Aug 20, 2022 Eating (QC): 6 Oral Hygiene (QC): 5 Toileting Hygiene (QC): 3 Shower/Bathe Self (QC): 3 Upper Body Dressing (QC): 5 Lower Body Dressing (QC): 3 On/Off Footwear (QC): 3 Additional Goals: 1-Demonstrate ADL Tasks, 2-Verbalize Understanding, 3- ImproveStrength/Jelani 1=Demonstrate adherence to instructed precautions during ADL tasks. 2=Patient will verbalize/demonstrate understanding of assistive devices/modifications for ADL. 3=Patient will improve strength/tolerance for activity to enable patient to perform ADL's. OT Education/Plan Problem List/Assessment Assessment: Decreased Activ Tolerance, Decreased Safety Aware, Decreased UE Strength, Dependent Transfers, Impaired Bed Mobility, Impaired Coordination, Impaired Funct Balance, Impaired Self-Care Skills Discharge Recommendations Plan/Recommendations: Continue POC Treatment Plan/Plan of Care Treatment,Training & Education: Yes Patient would benefit from OT for education, treatment and training to promote independence in ADL's, mobility, safety and/or upper extremity function for ADL's. Plan of Care: ADL Retraining, Functional Mobility, Group Exercise/Act as Ind, UE Funct Exercise/Act, UE Neuromus Re-Ed/Coord Treatment Duration: Aug 20, 2022 Frequency: 5 times per week (4-5 times a week) Estimated Hrs Per Day: .25 hour per day Agreement: Yes Rehab Potential: Fair Time Start Time: 10:36 Stop Time: 11:00 DATE: Aug 18, 2022 Total Time Billed (hr/min): 24 Billed Treatment Time ADL 24 min YVONNE WEST OT Aug 18, 2022 14:26
[2022-08-18 16:20] VITALS: BP 125/58
--- NOTE | 2022-08-18 19:07 | Progress Note ---
Subjective Subjective/Events-last exam Feeling much better this AM. Tolerating PO diet. Working with PT. Awaiting placement Review of Systems General: Fatigue Pulmonary: No Dyspnea, No Cough Cardiovascular: No: Chest Pain, Palpitations, Edema Gastrointestinal: No: Nausea, Vomiting, Abdominal Pain Neurological: Weakness, Incoordination Objective Exam Last Set of Vital Signs Vital Signs Date Time Temp Pulse Resp B/P (MAP) Pulse Ox O2 Delivery O2 Flow Rate FiO2 08/18/22 16:20 36.3 80 17 125/58 (80) 99 Room Air 08/17/22 03:20 0.00 0.00 08/16/22 00:33 21 Capillary Refill : Less Than 3 Seconds I&O Intake and Output 08/18/22 00:00 Intake Total 3155 ml Output Total 3200 ml Balance -45 ml Intake Oral 3105 ml IV Total 50 ml Output Urine Total 3200 ml # Voids 3 # Bowel Movements 2 General: Alert, Oriented X3, No Acute Distress Lungs: Clear to Auscultation, Normal Air Movement Heart: Regular Rate, No Murmurs Abdomen: Normal Bowel Sounds, Soft, No Tenderness, No Masses Extremities: No Edema, No Tenderness/Swelling Neuro: Normal Speech Results/Procedures Lab Laboratory Tests 08/18/22 05:46: White Blood Count 6.6, Red Blood Count 3.81, Hemoglobin 10.1L, Hematocrit 31L, Mean Corpuscular Volume 81, Mean Corpuscular Hemoglobin 27, Mean Corpuscular Hemoglobin Concent 33, Red Cell Distribution Width 14.8H, Platelet Count 198, Mean Platelet Volume 9.7, Immature Granulocyte % (Auto) 1, Neutrophils (%) (Auto) 77H, Lymphocytes (%) (Auto) 16, Monocytes (%) (Auto) 5, Eosinophils (%) (Auto) 0, Basophils (%) (Auto) 0, Neutrophils # (Auto) 5.1, Lymphocytes # (Auto) 1.1, Monocytes # (Auto) 0.3, Eosinophils # (Auto) 0.0, Basophils # (Auto) 0.0, Immature Granulocyte # (Auto) 0.1, Sodium Level 138, Potassium Level 4.1, Chloride Level 105, Carbon Dioxide Level 25, Anion Gap 8, Blood Urea Nitrogen 13, Creatinine 0.70, Estimat Glomerular Filtration Rate 90, BUN/Creatinine Ratio 19, Glucose Level 156H, Calcium Level 9.1, Corrected Calcium 9.6, Total Bilirubin 0.4, Aspartate Amino Transf (AST/SGOT) 17, Alanine Aminotransferase (ALT/SGPT) 24, Alkaline Phosphatase 81, Total Protein 5.9L, Albumin 3.4 Microbiology 08/12/22 Urine Culture - Final, Complete Pseudomonas aeruginosa Assessment/Plan Assessment/Plan (1) UTI (urinary tract infection) Status: Acute Assessment & Plan: Urine culture with pseudomonas, sensitivity pending. Continue cefepime. 08/17: Hickey sensitive, encourage PO hydration 08/18: Completed antibiotics today Qualifiers: Qualified Codes: N30.01 - Acute cystitis with hematuria (2) Hypertension Status: Chronic Assessment & Plan: BP normal currently, resume home med if needed (3) Wheelchair dependent Status: Chronic Assessment & Plan: Unable to function in home currently, PT, OT, social media marketing analyst, plan for SNF on d/c. (4) Hyperlipidemia Status: Chronic Assessment & Plan: Continue home statin. (5) Frequent falls Status: Chronic (6) DVT prophylaxis Status: Acute Assessment & Plan: Enoxaparin YOLIS OCASIO MD Aug 18, 2022 19:07
[2022-08-18] MEDS: PRAMIPEXOLE 0.125 MG (MIRAPEX) TABLET PO SCH (20:07)
[2022-08-18] MEDS: ENOXAPARIN 40 MG/0.4 ML (LOVENOX) SYR SC SCH (22:25)
[2022-08-18] MEDS: ACETAMINOPHEN 325 MG TABLET PO PRN (22:25)
[2022-08-18 23:06] VITALS: BP 126/80
[2022-08-19 06:24] LABS: BASOPHILS % (AUTO) 0 % (0-10); EOSINOPHILS % (AUTO) 0 % (0-10); HEMATOCRIT 30 % (35-52); HEMOGLOBIN 9.7 g/dL (11.5-16.0); LYMPHOCYTES # (AUTO) 1.1 10^3/uL (1.0-4.0); LYMPHOCYTES % (AUTO) 17 % (12-44); MEAN CORPUSCULAR HEMOGLOBIN 26 pg (25-34); MEAN CORPUSCULAR HGB CONC 32 g/dL (32-36); MEAN CORPUSCULAR VOLUME 81 fL (80-99); MEAN PLATELET VOLUME 9.6 fL (9.0-12.2); MONOCYTES # (AUTO) 0.4 10^3/uL (0.0-1.0); MONOCYTES % (AUTO) 5 % (0-12); NEUTROPHILS # (AUTO) 5.3 10^3/uL (1.8-7.8); NEUTROPHILS % (AUTO) 77 % (42-75); PLATELET COUNT 191 10^3/uL (130-400); WHITE BLOOD COUNT 6.9 10^3/uL (4.3-11.0)
[2022-08-19 06:42] LABS: ALBUMIN 3.3 GM/DL (3.2-4.5); BILIRUBIN,TOTAL 0.4 MG/DL (0.1-1.0); CALCIUM 8.8 MG/DL (8.5-10.1); CREATININE SERUM 0.73 MG/DL (0.60-1.30); POTASSIUM 4.2 MMOL/L (3.6-5.0); TOTAL PROTEIN 5.6 GM/DL (6.4-8.2)
[2022-08-19 07:09] VITALS: BP 111/61
--- NOTE | 2022-08-19 08:55 | Progress Note - Hospitalist ---
Subjective HPI/CC On Admission Date Seen by Provider: Aug 19, 2022 Time Seen by Provider: 11:00 Chief complaint: UTI with inability to ambulate HPI: This is a 76-year-old female who moved here in December and her son takes care of her at home who presented to the ER with inability to ambulate. Apparently she was found to be very disheveled and poor hygiene and since her power wheelchair was not working she would defecate and urinate and sit in it all day. She does have breakdown on her buttocks and she does have a UTI. Subjective/Events-last exam No major issues Awaiting placement Completed abx Review of Systems General: Fatigue, Malaise Objective Exam Vital Signs Vital Signs Date Time Temp Pulse Resp B/P (MAP) Pulse Ox O2 Delivery O2 Flow Rate FiO2 08/19/22 23:24 36.4 79 18 113/65 (81) 98 Room Air 0.00 0.00 08/16/22 00:33 21 Capillary Refill : Less Than 3 Seconds General Appearance: No Apparent Distress, WD/WN, Chronically ill Respiratory: Lungs Clear, Normal Breath Sounds Cardiovascular: Regular Rate, Rhythm Neurologic/Psychiatric: Alert, Oriented x3 Results/Procedures Lab Laboratory Tests 08/19/22 06:07 08/20/22 04:45 Patient resulted labs reviewed. Assessment/Plan Assessment and Plan Assess & Plan/Chief Complaint Assessment: Inability to ambulate UTI-Completed abx Poor social situation Buttock breakdown RLS Hypertension Osteoarthritis Hyperlipidemia Plan: Treat UTI Wound care may be needed PT and OT BEULAH PAREKH DO Aug 19, 2022 08:55
--- NOTE | 2022-08-19 09:10 | Physical Therapy Daily Note ---
PT Daily Note-Current Subjective Pt found laying in bed upon entry. Agreed to PT. No reports of pain. States she would like to move to the recliner after PT treatment. Pain Section J - Health Conditions 1. Rarely or not at all 2. Occasionally 3. Frequently 4. Almost constantly 8. Unable to answer Pain Effect on Sleep: 1 Pain Interference with Therapy: 1 Pain Interference w/Day-to-Day: 1 Mental Status Patient Orientation: Person, Place Transfers SCALE: Activities may be completed with or without assistive devices. 4-Zxubuwzhas-qutlldh completes the activity by him/herself with no assistance from a helper. 5-Set-up or Clean-up Assistance-helper sets up or cleans up; patient completes activity. [place] assists only prior to or following the activity. 4-Supervision or Touching Assistance-helper provides verbal cues and/or touching/steadying and/or contact guard assistance as patient completes activity. Assistance may be provided throughout the activity or intermittently. 3-Partial/Moderate Assistance-helper does LESS THAN HALF the effort. [place] lifts, holds or supports trunk or limbs, but provides less than half the effort. 2-Substantial/Maximal Assistance-helper does MORE THAN HALF the effort. [place] lifts or holds trunk or limbs and provides more than half the effort. 6-Haxhvylfr-rupidf does ALL the effort. Patient does none of the effort to complete the activity. Or, the assistance of 2 or more helpers is required for the patient to complete the activity. If activity was not attempted, code reason: 7-Patient Refused. 9-Not Applicable-not attempted and the patient did not perform the activity before the current illness, exacerbation or injury. 10-Not Attempted due to Environmental Limitations-(lack of equipment, weather restraints, etc.). 88-Not Attempted due to Medical Conditions or Safety Concerns. Lying to Sitting/Side of Bed(Q: 4 Sit to Stand (QC): 3 Chair/Ggg-ht-Uwoee Xfer(QC): 3 SBA /c lying to sitting transfer for safety due to strength and balance deficits. MIN lifting assistance /c sit to stand and bed to chair transfer. Weight Bearing Right Lower Extremity: Right Non Weight Bearing Left Lower Extremity: Left Non Weight Bearing Gait Training Does the Patient Walk?: No and Walking Goal IS indicated Treatments Seated Therapeutic Exercises (B): LAQs x 20 Marching x 20 Heel/toe raises x 20 Hip abd/add x 20 TA sets /c pillow x 20 Assessment Current Status: Good Progress Pt displays improved transfer ability this visit. Able to complete bed to transfer /c MIN lifting assistance only. Completes sit to stands 3x from edge of bed /c MIN lifting assistance. SBA /c bed mobility. Able to stand at FWW for 15 seconds x 3. Continue to progress per POC to improve strength, endurance, and functional ability. PT Long-Term Goals Long-Term Goals PT Long-Term Goals Time Frame: Aug 27, 2022 Roll Left & Right (QC): 6 Sit to Lying (QC): 6 Lying-Sitting on Side/Bed(QC): 6 Sit to Stand (QC): 3 Chair/Usq-kd-Ywogj Xfer(QC): 3 Toilet Transfer (QC): 3 Does the Patient Walk: No and Walking Goal NOT indicated PT Plan Treatment/Plan Treatment Plan: Continue Plan of Care Treatment Plan: Bed Mobility, Education, Functional Activity Jelani, Functional Strength, Gait, Safety, Therapeutic Exercise, Transfers Treatment Duration: Aug 27, 2022 Frequency: 6 times per week Estimated Hrs Per Day: .25 hour per day Patient and/or Family Agrees t: Yes Time Time In: 843 Time Out: 901 DATE: Aug 19, 2022 Total Billed Treatment Time: 18 Total Billed Treatment 1 visit FA x 1 KIMBERLEY TROTTER CADDIE SUPERVISOR Aug 19, 2022 09:10
[2022-08-19] MEDS: MULTIVIT W/MINERALS TAB (THERAGRAN M) PO SCH (09:40)
[2022-08-19] MEDS: DOCUSATE SODIUM 100 MG (COLACE) CAP PO SCH ×2 (09:40→19:42)
[2022-08-19] MEDS: SENNOSIDES 8.6 MG (SENOKOT) TAB PO SCH ×2 (09:40→19:43)
[2022-08-19] MEDS: MELOXICAM 7.5 MG (MOBIC) TABLET PO SCH (09:42)
[2022-08-19] MEDS: MICONAZOLE 2% POWDER (DESENEX AF) 90 GM TOP SCH ×2 (09:43→21:18)
[2022-08-19] MEDS ORDERED: HYDROCORTISONE 1% CREAM 30 GM TUBE TOP PRN (10:45)
--- NOTE | 2022-08-19 13:13 | Occupational Ther Daily Note ---
OT Current Status-Daily Note Subjective Up in recliner, agreeable to OT Pain Numeric Pain Scale: 4 Location Body Site: Back (just started") Mental Status/Objective Patient Orientation: Person, Place, Time, Situation ADL-Treatment Therapy Code Descriptions/Definitions Functional [place] Measure: 0=Not Assessed/NA 4=Minimal Assistance 1=Total Assistance 5=Supervision or Setup 2=Maximal Assistance 6=Modified [place] 3=Moderate Assistance 7=Complete IndependenceSCALE: Activities may be completed with or without assistive devices. 2-Gdjuvcxndt-kmsybru completes the activity by him/herself with no assistance from a helper. 5-Set-up or Clean-up Assistance-helper sets up or cleans up; patient completes activity. [place] assists only prior to or following the activity. 4-Supervision or Touching Assistance-helper provides verbal cues and/or touching/steadying and/or contact guard assistance as patient completes activity. Assistance may be provided throughout the activity or intermittently. 3-Partial/Moderate Assistance-helper does LESS THAN HALF the effort. [place] lifts, holds or supports trunk or limbs, but provides less than half the effort. 2-Substantial/Maximal Assistance-helper does MORE THAN HALF the effort. [place] lifts or holds trunk or limbs and provides more than half the effort. 8-Ttbmvudog-ncditg does ALL the effort. Patient does none of the effort to complete the activity. Or, the assistance of 2 or more helpers is required for the patient to complete the activity. If activity was not attempted, code reason: 7-Patient Refused. 9-Not Applicable-not attempted and the patient did not perform the activity before the current illness, exacerbation or injury. 10-Not Attempted due to Environmental Limitations-(lack of equipment, weather restraints, etc.). 88-Not Attempted due to Medical Conditions or Safety Concerns. Eating (QC): 6 Oral Hygiene (QC): 5 Upper Body Dressing (QC): 5 (Gown) Other Treatment BUE THER EX, arm chair pushups 10x2, partial stand w/ 3 sec holding four times. Much improved efforts and progress towards transfers of one person Education OT Patient Education: Correct positioning, Exercise program, Modified ADL techniques, Progress toward Goal/Update tx plan, Purpose of tx/functional activities, Reviewed precautions, Rehab process, Safety issues, Transfer techniques, Use of adapted equipment Teaching Recipient: Patient Teaching Methods: Demonstration, Discussion Response to Teaching: Return Demonstration, Reinforcement Needed OT Alcohol Rubber Goals Alcohol Rubber Goals Time Frame: Aug 20, 2022 Eating (QC): 6 Oral Hygiene (QC): 5 Toileting Hygiene (QC): 3 Shower/Bathe Self (QC): 3 Upper Body Dressing (QC): 5 Lower Body Dressing (QC): 3 On/Off Footwear (QC): 3 Additional Goals: 1-Demonstrate ADL Tasks, 2-Verbalize Understanding, 3- ImproveStrength/Jelani 1=Demonstrate adherence to instructed precautions during ADL tasks. 2=Patient will verbalize/demonstrate understanding of assistive devices/modifications for ADL. 3=Patient will improve strength/tolerance for activity to enable patient to perform ADL's. OT Education/Plan Problem List/Assessment Assessment: Decreased Activ Tolerance, Decreased Safety Aware, Decreased UE Strength, Impaired Funct Balance, Impaired Self-Care Skills Discharge Recommendations Plan/Recommendations: Continue POC Treatment Plan/Plan of Care Treatment,Training & Education: Yes Patient would benefit from OT for education, treatment and training to promote independence in ADL's, mobility, safety and/or upper extremity function for ADL's. Plan of Care: ADL Retraining, Functional Mobility, Group Exercise/Act as Ind, UE Funct Exercise/Act, UE Neuromus Re-Ed/Coord Treatment Duration: Aug 20, 2022 Frequency: 5 times per week (4-5 times a week) Estimated Hrs Per Day: .25 hour per day Agreement: Yes Rehab Potential: Fair Time Start Time: 10:22 Stop Time: 11:00 DATE: Aug 19, 2022 Total Time Billed (hr/min): 38 Billed Treatment Time EX 2, ADL 1 38 min YVONNE WEST OT Aug 19, 2022 13:13
[2022-08-19 16:35] VITALS: BP 117/65
[2022-08-19] MEDS: ENOXAPARIN 40 MG/0.4 ML (LOVENOX) SYR SC SCH (21:17)
[2022-08-19] MEDS: PRAMIPEXOLE 0.125 MG (MIRAPEX) TABLET PO SCH (21:17)
[2022-08-19] MEDS: ACETAMINOPHEN 325 MG TABLET PO PRN (21:23)
[2022-08-19 23:24] VITALS: BP 113/65
[2022-08-20 04:51] LABS: BASOPHILS % (AUTO) 0 % (0-10); EOSINOPHILS % (AUTO) 0 % (0-10); HEMATOCRIT 32 % (35-52); HEMOGLOBIN 10.5 g/dL (11.5-16.0); LYMPHOCYTES # (AUTO) 1.7 10^3/uL (1.0-4.0); LYMPHOCYTES % (AUTO) 22 % (12-44); MEAN CORPUSCULAR HEMOGLOBIN 26 pg (25-34); MEAN CORPUSCULAR HGB CONC 32 g/dL (32-36); MEAN CORPUSCULAR VOLUME 81 fL (80-99); MEAN PLATELET VOLUME 9.6 fL (9.0-12.2); MONOCYTES # (AUTO) 0.4 10^3/uL (0.0-1.0); MONOCYTES % (AUTO) 5 % (0-12); NEUTROPHILS # (AUTO) 5.5 10^3/uL (1.8-7.8); NEUTROPHILS % (AUTO) 71 % (42-75); PLATELET COUNT 229 10^3/uL (130-400); WHITE BLOOD COUNT 7.8 10^3/uL (4.3-11.0)
[2022-08-20 05:00] LABS: ALBUMIN 3.7 GM/DL (3.2-4.5); POTASSIUM 4.2 MMOL/L (3.6-5.0)
[2022-08-20 05:01] LABS: CALCIUM 9.4 MG/DL (8.5-10.1)
[2022-08-20 05:02] LABS: TOTAL PROTEIN 6.3 GM/DL (6.4-8.2)
[2022-08-20 05:04] LABS: BILIRUBIN,TOTAL 0.3 MG/DL (0.1-1.0)
[2022-08-20 05:06] LABS: CREATININE SERUM 0.7 MG/DL (0.60-1.30)
--- NOTE | 2022-08-20 07:15 | Progress Note - Hospitalist ---
Subjective HPI/CC On Admission Date Seen by Provider: Aug 20, 2022 Time Seen by Provider: 11:00 Chief complaint: UTI with inability to ambulate HPI: This is a 76-year-old female who moved here in December and her son takes care of her at home who presented to the ER with inability to ambulate. Apparently she was found to be very disheveled and poor hygiene and since her power wheelchair was not working she would defecate and urinate and sit in it all day. She does have breakdown on her buttocks and she does have a UTI. Subjective/Events-last exam Patient doing well No major issues Bowels are moving Review of Systems General: Fatigue Objective Exam Vital Signs Vital Signs Date Time Temp Pulse Resp B/P (MAP) Pulse Ox O2 Delivery O2 Flow Rate FiO2 08/20/22 20:40 Room Air 08/20/22 15:42 36.9 83 18 118/55 (76) 95 08/19/22 23:24 0.00 0.00 08/16/22 00:33 21 Capillary Refill : Less Than 3 Seconds General Appearance: No Apparent Distress, WD/WN, Chronically ill Respiratory: Lungs Clear, Normal Breath Sounds Cardiovascular: Regular Rate, Rhythm Neurologic/Psychiatric: Alert, Oriented x3, No Motor/Sensory Deficits, Normal Mood/Affect Results/Procedures Lab Laboratory Tests 08/20/22 04:45 Patient resulted labs reviewed. Assessment/Plan Assessment and Plan Assess & Plan/Chief Complaint Assessment: Inability to ambulate UTI-Completed abx Poor social situation Buttock breakdown RLS Hypertension Osteoarthritis Hyperlipidemia Plan: Bowel regimen Wound care may be needed PT and OT BEULAH PAREKH DO Aug 20, 2022 07:15
[2022-08-20 07:55] VITALS: BP 149/73
[2022-08-20] MEDS: ACETAMINOPHEN 325 MG TABLET PO PRN ×2 (08:04→20:59)
[2022-08-20] MEDS: MULTIVIT W/MINERALS TAB (THERAGRAN M) PO SCH (08:42)
[2022-08-20] MEDS: MICONAZOLE 2% POWDER (DESENEX AF) 90 GM TOP SCH ×2 (08:42→20:59)
[2022-08-20] MEDS: DOCUSATE SODIUM 100 MG (COLACE) CAP PO SCH ×2 (08:42→19:28)
[2022-08-20] MEDS: SENNOSIDES 8.6 MG (SENOKOT) TAB PO SCH ×2 (08:42→19:28)
[2022-08-20] MEDS: MELOXICAM 7.5 MG (MOBIC) TABLET PO SCH (08:42)
--- NOTE | 2022-08-20 10:58 | Physical Therapy Daily Note ---
PT Daily Note-Current Subjective Pt is in bed. Wants to get up to the chair. Pain Section J - Health Conditions 1. Rarely or not at all 2. Occasionally 3. Frequently 4. Almost constantly 8. Unable to answer Pain Effect on Sleep: 1 Pain Interference with Therapy: 1 Pain Interference w/Day-to-Day: 1 Mental Status Patient Orientation: Person, Place, Time, Situation Transfers SCALE: Activities may be completed with or without assistive devices. 4-Ugjkokqumk-bfkjtfs completes the activity by him/herself with no assistance from a helper. 5-Set-up or Clean-up Assistance-helper sets up or cleans up; patient completes activity. [place] assists only prior to or following the activity. 4-Supervision or Touching Assistance-helper provides verbal cues and/or touching/steadying and/or contact guard assistance as patient completes a ctivity. Assistance may be provided throughout the activity or intermittently. 3-Partial/Moderate Assistance-helper does LESS THAN HALF the effort. [place] lifts, holds or supports trunk or limbs, but provides less than half the effort. 2-Substantial/Maximal Assistance-helper does MORE THAN HALF the effort. [place] lifts or holds trunk or limbs and provides more than half the effort. 6-Chgxzqdcm-euwuob does ALL the effort. Patient does none of the effort to complete the activity. Or, the assistance of 2 or more helpers is required for the patient to complete the activity. If activity was not attempted, code reason: 7-Patient Refused. 9-Not Applicable-not attempted and the patient did not perform the activity before the current illness, exacerbation or injury. 10-Not Attempted due to Environmental Limitations-(lack of equipment, weather restraints, etc.). 88-Not Attempted due to Medical Conditions or Safety Concerns. Roll Left & Right (QC): 3 Sit to Lying (QC): 3 Lying to Sitting/Side of Bed(Q: 3 Sit to Stand (QC): 3 Chair/Olh-nq-Jcjjy Xfer(QC): 3 Stand pivot transfer to chair. Weight Bearing Right Lower Extremity: Right Non Weight Bearing Left Lower Extremity: Left Non Weight Bearing Gait Training Gait Persons Needed: 1 Gait Assistive Device: FWW Exercises Supine Ex: LE Protocol Supine Reps: 20 Assessment Current Status: Good Progress Pt was eager to get up and work with therapy. She had moderate difficulty with the transfer from the bed to the chair. PT Long-Term Goals Cardiology Rn Goals PT Long-Term Goals Time Frame: Aug 27, 2022 Roll Left & Right (QC): 6 Sit to Lying (QC): 6 Lying-Sitting on Side/Bed(QC): 6 Sit to Stand (QC): 3 Chair/Swg-wv-Cxqce Xfer(QC): 3 Toilet Transfer (QC): 3 Does the Patient Walk: No and Walking Goal NOT indicated PT Plan Treatment/Plan Treatment Plan: Continue Plan of Care Treatment Plan: Bed Mobility, Education, Functional Activity Jelani, Functional Strength, Gait, Safety, Therapeutic Exercise, Transfers Treatment Duration: Aug 27, 2022 Frequency: 6 times per week Estimated Hrs Per Day: .25 hour per day Patient and/or Family Agrees t: Yes Time Time In: 851 Time Out: 914 DATE: Aug 20, 2022 Total Billed Treatment Time: 23 Total Billed Treatment 1, ex, JAVI Pompa PT Aug 20, 2022 10:58
[2022-08-20 15:42] VITALS: BP 118/55
[2022-08-20] MEDS: ENOXAPARIN 40 MG/0.4 ML (LOVENOX) SYR SC SCH (20:59)
[2022-08-20] MEDS: PRAMIPEXOLE 0.125 MG (MIRAPEX) TABLET PO SCH (20:59)
[2022-08-20 23:38] VITALS: BP 128/60
[2022-08-21] MEDS: ACETAMINOPHEN 325 MG TABLET PO PRN ×2 (04:44→20:21)
[2022-08-21 05:04] LABS: BASOPHILS % (AUTO) 0 % (0-10); EOSINOPHILS % (AUTO) 0 % (0-10); HEMATOCRIT 31 % (35-52); HEMOGLOBIN 10.2 g/dL (11.5-16.0); LYMPHOCYTES # (AUTO) 1.4 10^3/uL (1.0-4.0); LYMPHOCYTES % (AUTO) 19 % (12-44); MEAN CORPUSCULAR HEMOGLOBIN 27 pg (25-34); MEAN CORPUSCULAR HGB CONC 33 g/dL (32-36); MEAN CORPUSCULAR VOLUME 81 fL (80-99); MEAN PLATELET VOLUME 9.6 fL (9.0-12.2); MONOCYTES # (AUTO) 0.4 10^3/uL (0.0-1.0); MONOCYTES % (AUTO) 6 % (0-12); NEUTROPHILS # (AUTO) 5.4 10^3/uL (1.8-7.8); NEUTROPHILS % (AUTO) 74 % (42-75); PLATELET COUNT 199 10^3/uL (130-400); WHITE BLOOD COUNT 7.3 10^3/uL (4.3-11.0)
[2022-08-21 05:24] LABS: ALBUMIN 3.7 GM/DL (3.2-4.5); BILIRUBIN,TOTAL 0.4 MG/DL (0.1-1.0); CALCIUM 9.1 MG/DL (8.5-10.1); CREATININE SERUM 0.69 MG/DL (0.60-1.30); POTASSIUM 4.1 MMOL/L (3.6-5.0)
--- NOTE | 2022-08-21 06:59 | Progress Note - Hospitalist ---
Subjective HPI/CC On Admission Date Seen by Provider: Aug 21, 2022 Time Seen by Provider: 11:00 Chief complaint: UTI with inability to ambulate HPI: This is a 76-year-old female who moved here in December and her son takes care of her at home who presented to the ER with inability to ambulate. Apparently she was found to be very disheveled and poor hygiene and since her power wheelchair was not working she would defecate and urinate and sit in it all day. She does have breakdown on her buttocks and she does have a UTI. Subjective/Events-last exam NO major issues BM+ Pain controlled Objective Exam Vital Signs Vital Signs Date Time Temp Pulse Resp B/P (MAP) Pulse Ox O2 Delivery O2 Flow Rate FiO2 08/21/22 15:43 36.7 80 18 142/62 (88) 100 Room Air 08/19/22 23:24 0.00 0.00 08/16/22 00:33 21 Capillary Refill : Less Than 3 Seconds General Appearance: No Apparent Distress, WD/WN, Chronically ill Respiratory: Lungs Clear, Normal Breath Sounds Cardiovascular: Regular Rate, Rhythm Results/Procedures Lab Laboratory Tests 08/21/22 04:55 Patient resulted labs reviewed. Assessment/Plan Assessment and Plan Assess & Plan/Chief Complaint Assessment: Inability to ambulate UTI-Completed abx Poor social situation Buttock breakdown RLS Hypertension Osteoarthritis Hyperlipidemia Plan: Bowel regimen Wound care may be needed PT and OT BEULAH PAREKH DO Aug 21, 2022 06:59
[2022-08-21] MEDS: SENNOSIDES 8.6 MG (SENOKOT) TAB PO SCH ×2 (07:43→19:53)
[2022-08-21] MEDS: MULTIVIT W/MINERALS TAB (THERAGRAN M) PO SCH (07:43)
[2022-08-21] MEDS: DOCUSATE SODIUM 100 MG (COLACE) CAP PO SCH ×2 (07:43→19:53)
[2022-08-21] MEDS: MELOXICAM 7.5 MG (MOBIC) TABLET PO SCH (07:43)
[2022-08-21] MEDS: MICONAZOLE 2% POWDER (DESENEX AF) 90 GM TOP SCH ×2 (07:44→20:21)
[2022-08-21 08:31] VITALS: BP 152/70
[2022-08-21 15:43] VITALS: BP 142/62
[2022-08-21] MEDS: ENOXAPARIN 40 MG/0.4 ML (LOVENOX) SYR SC SCH (20:21)
[2022-08-21] MEDS: PRAMIPEXOLE 0.125 MG (MIRAPEX) TABLET PO SCH (20:21)
[2022-08-21 23:28] VITALS: BP 132/60
[2022-08-22 07:31] VITALS: BP 158/69
[2022-08-22] MEDS: MICONAZOLE 2% POWDER (DESENEX AF) 90 GM TOP SCH ×2 (08:47→21:49)
[2022-08-22] MEDS: MULTIVIT W/MINERALS TAB (THERAGRAN M) PO SCH (08:48)
[2022-08-22] MEDS: DOCUSATE SODIUM 100 MG (COLACE) CAP PO SCH ×2 (08:48→21:49)
[2022-08-22] MEDS: SENNOSIDES 8.6 MG (SENOKOT) TAB PO SCH ×2 (08:48→21:49)
[2022-08-22] MEDS: MELOXICAM 7.5 MG (MOBIC) TABLET PO SCH (08:48)
--- NOTE | 2022-08-22 09:07 | Progress Note - Hospitalist ---
Subjective HPI/CC On Admission Date Seen by Provider: Aug 22, 2022 Time Seen by Provider: 11:00 Chief complaint: UTI with inability to ambulate HPI: This is a 76-year-old female who moved here in December and her son takes care of her at home who presented to the ER with inability to ambulate. Apparently she was found to be very disheveled and poor hygiene and since her power wheelchair was not working she would defecate and urinate and sit in it all day. She does have breakdown on her buttocks and she does have a UTI. Subjective/Events-last exam No major issues Awaiting residential placement Objective Exam Vital Signs Vital Signs Date Time Temp Pulse Resp B/P (MAP) Pulse Ox O2 Delivery O2 Flow Rate FiO2 08/22/22 16:55 36.1 77 16 135/62 (86) 97 Room Air 08/21/22 23:28 0.00 0.00 08/16/22 00:33 21 Capillary Refill : Less Than 3 Seconds General Appearance: No Apparent Distress, WD/WN, Chronically ill Respiratory: Lungs Clear, Normal Breath Sounds Cardiovascular: Regular Rate, Rhythm Results/Procedures Lab Patient resulted labs reviewed. Assessment/Plan Assessment and Plan Assess & Plan/Chief Complaint Assessment: Inability to ambulate UTI-Completed abx Poor social situation Buttock breakdown RLS Hypertension Osteoarthritis Hyperlipidemia Plan: Bowel regimen Wound care may be needed PT and OT BEULAH PAREKH DO Aug 22, 2022 09:07
[2022-08-22 11:09] VITALS: BP 156/63
--- NOTE | 2022-08-22 11:16 | Physical Therapy Daily Note ---
PT Daily Note-Current Subjective Patient agrees to therapy. Pain Section J - Health Conditions 1. Rarely or not at all 2. Occasionally 3. Frequently 4. Almost constantly 8. Unable to answer Pain Effect on Sleep: 1 Pain Interference with Therapy: 1 Pain Interference w/Day-to-Day: 1 Mental Status Patient Orientation: Normal For Age Transfers SCALE: Activities may be completed with or without assistive devices. 2-Uliyjqhayx-vxddalo completes the activity by him/herself with no assistance from a helper. 5-Set-up or Clean-up Assistance-helper sets up or cleans up; patient completes activity. [place] assists only prior to or following the activity. 4-Supervision or Touching Assistance-helper provides verbal cues and/or touching/steadying and/or contact guard assistance as patient completes activity. Assistance may be provided throughout the activity or intermittently. 3-Partial/Moderate Assistance-helper does LESS THAN HALF the effort. [place] lifts, holds or supports trunk or limbs, but provides less than half the effort. 2-Substantial/Maximal Assistance-helper does MORE THAN HALF the effort. [place] lifts or holds trunk or limbs and provides more than half the effort. 0-Rakiniuwh-cpktpj does ALL the effort. Patient does none of the effort to complete the activity. Or, the assistance of 2 or more helpers is required for the patient to complete the activity. If activity was not attempted, code reason: 7-Patient Refused. 9-Not Applicable-not attempted and the patient did not perform the activity before the current illness, exacerbation or injury. 10-Not Attempted due to Environmental Limitations-(lack of equipment, weather restraints, etc.). 88-Not Attempted due to Medical Conditions or Safety Concerns. Sit to Stand (QC): 1 (x 2 to FWW with inability to fully attain) Weight Bearing Right Lower Extremity: Right Non Weight Bearing Left Lower Extremity: Left Non Weight Bearing Exercises Seated Therapy Exercises: Ankle pumps, Sit to stand (5 sets dependent assist of 2), Long arc quads Seated Reps: 15 Assessment Patient continues to have difficulty with attaining stand to FWW. Dependent assist with all upright mobility. PT Policy Issue Clerk Goals Policy Issue Clerk Goals PT Policy Issue Clerk Goals Time Frame: Aug 27, 2022 Roll Left & Right (QC): 6 Sit to Lying (QC): 6 Lying-Sitting on Side/Bed(QC): 6 Sit to Stand (QC): 3 Chair/Hhg-po-Pilui Xfer(QC): 3 Toilet Transfer (QC): 3 Does the Patient Walk: No and Walking Goal NOT indicated PT Plan Treatment/Plan Treatment Plan: Continue Plan of Care Treatment Plan: Bed Mobility, Education, Functional Activity Jelani, Functional Strength, Gait, Safety, Therapeutic Exercise, Transfers Treatment Duration: Aug 27, 2022 Frequency: 6 times per week Estimated Hrs Per Day: .25 hour per day Patient and/or Family Agrees t: Yes Time Time In: 1056 Time Out: 1106 DATE: Aug 22, 2022 Total Billed Treatment Time: 10 Total Billed Treatment 1 visit EX 10 min RELL BERMAN PT Aug 22, 2022 11:16
--- NOTE | 2022-08-22 11:38 | Occupational Ther Daily Note ---
OT Current Status-Daily Note Subjective Up in recliner agreeable to OT. Mental Status/Objective Patient Orientation: Person, Place, Time, Situation ADL-Treatment declines participation in ADLs Therapy Code Descriptions/Definitions Functional [place] Measure: 0=Not Assessed/NA 4=Minimal Assistance 1=Total Assistance 5=Supervision or Setup 2=Maximal Assistance 6=Modified [place] 3=Moderate Assistance 7=Complete IndependenceSCALE: Activities may be completed with or without assistive devices. 4-Gnyteinqoa-klatepr completes the activity by him/herself with no assistance from a helper. 5-Set-up or Clean-up Assistance-helper sets up or cleans up; patient completes activity. [place] assists only prior to or following the activity. 4-Supervision or Touching Assistance-helper provides verbal cues and/or touching/steadying and/or contact guard assistance as patient completes activity. Assistance may be provided throughout the activity or intermittently. 3-Partial/Moderate Assistance-helper does LESS THAN HALF the effort. [place] lifts, holds or supports trunk or limbs, but provides less than half the effort. 2-Substantial/Maximal Assistance-helper does MORE THAN HALF the effort. [place] lifts or holds trunk or limbs and provides more than half the effort. 8-Noqrqicph-fsoeny does ALL the effort. Patient does none of the effort to complete the activity. Or, the assistance of 2 or more helpers is required for the patient to complete the activity. If activity was not attempted, code reason: 7-Patient Refused. 9-Not Applicable-not attempted and the patient did not perform the activity before the current illness, exacerbation or injury. 10-Not Attempted due to Environmental Limitations-(lack of equipment, weather restraints, etc.). 88-Not Attempted due to Medical Conditions or Safety Concerns. Eating (QC): 6 Oral Hygiene (QC): 5 (set up completes in sitting, is able to complete at sink in shower chair) Other Treatment Functional UE ther ex to promote transfer, ADLS, and mobility. Patient reports competed 15x3 of HEP provided to her Monday, however this date patient requires 2 person assist to stand from recliner. Repeat sit/stand x6 with Mod assist of one from recliner. rest periods at 3rd and 5th rep Education OT Patient Education: Correct positioning, Exercise program, Modified ADL techniques, Progress toward Goal/Update tx plan, Purpose of tx/functional activities, Reviewed precautions, Rehab process, Safety issues, Transfer techniques Teaching Recipient: Patient Teaching Methods: Demonstration, Discussion Response to Teaching: Reinforcement Needed OT Fci Goals Fci Goals Time Frame: Aug 20, 2022 Eating (QC): 6 Oral Hygiene (QC): 5 Toileting Hygiene (QC): 3 Shower/Bathe Self (QC): 3 Upper Body Dressing (QC): 5 Lower Body Dressing (QC): 3 On/Off Footwear (QC): 3 Additional Goals: 1-Demonstrate ADL Tasks, 2-Verbalize Understanding, 3- ImproveStrength/Jelani 1=Demonstrate adherence to instructed precautions during ADL tasks. 2=Patient will verbalize/demonstrate understanding of assistive devices/modifications for ADL. 3=Patient will improve strength/tolerance for activity to enable patient to perform ADL's. OT Education/Plan Problem List/Assessment Assessment: Decreased Activ Tolerance, Decreased UE Strength, Impaired Coordination, Impaired Funct Balance, Impaired Self-Care Skills Discharge Recommendations Plan/Recommendations: Continue POC Treatment Plan/Plan of Care Treatment,Training & Education: Yes Patient would benefit from OT for education, treatment and training to promote independence in ADL's, mobility, safety and/or upper extremity function for ADL's. Plan of Care: ADL Retraining, Functional Mobility, Group Exercise/Act as Ind, UE Funct Exercise/Act, UE Neuromus Re-Ed/Coord Treatment Duration: Aug 20, 2022 Frequency: 3 times per week (modified from 4-5 to 3-5 times per week) Estimated Hrs Per Day: .25 hour per day Agreement: Yes Rehab Potential: Fair Time Start Time: 11:00 Stop Time: 11:14 DATE: Aug 22, 2022 Total Time Billed (hr/min): 14 Billed Treatment Time EX 14 YVONNE WEST OT Aug 22, 2022 11:38
[2022-08-22 16:55] VITALS: BP 135/62
[2022-08-22] MEDS: PRAMIPEXOLE 0.125 MG (MIRAPEX) TABLET PO SCH (21:48)
[2022-08-22] MEDS: ENOXAPARIN 40 MG/0.4 ML (LOVENOX) SYR SC SCH (21:49)
[2022-08-22 23:41] VITALS: BP 118/56
[2022-08-23] MEDS: ACETAMINOPHEN 325 MG TABLET PO PRN ×2 (06:51→15:25)
[2022-08-23 07:07] VITALS: BP 121/58
[2022-08-23] MEDS: DOCUSATE SODIUM 100 MG (COLACE) CAP PO SCH ×2 (08:24→19:55)
[2022-08-23] MEDS: MULTIVIT W/MINERALS TAB (THERAGRAN M) PO SCH (08:24)
[2022-08-23] MEDS: MELOXICAM 7.5 MG (MOBIC) TABLET PO SCH (08:25)
[2022-08-23] MEDS: MICONAZOLE 2% POWDER (DESENEX AF) 90 GM TOP SCH ×2 (08:25→19:57)
[2022-08-23] MEDS: SENNOSIDES 8.6 MG (SENOKOT) TAB PO SCH ×2 (08:25→19:55)
--- NOTE | 2022-08-23 09:01 | Physical Therapy Daily Note ---
PT Daily Note-Current Subjective Patient agrees to PT. Reports she is having a better day today than yesterday. Pain Section J - Health Conditions 1. Rarely or not at all 2. Occasionally 3. Frequently 4. Almost constantly 8. Unable to answer Pain Effect on Sleep: 1 Pain Interference with Therapy: 1 Pain Interference w/Day-to-Day: 1 Transfers SCALE: Activities may be completed with or without assistive devices. 0-Ojrcfjiswd-gnvlupk completes the activity by him/herself with no assistance from a helper. 5-Set-up or Clean-up Assistance-helper sets up or cleans up; patient completes activity. [place] assists only prior to or following the activity. 4-Supervision or Touching Assistance-helper provides verbal cues and/or touching/steadying and/or contact guard assistance as patient completes activity. Assistance may be provided throughout the activity or intermittently. 3-Partial/Moderate Assistance-helper does LESS THAN HALF the effort. [place] lifts, holds or supports trunk or limbs, but provides less than half the effort. 2-Substantial/Maximal Assistance-helper does MORE THAN HALF the effort. [place] lifts or holds trunk or limbs and provides more than half the effort. 8-Qpwrmfxlt-aoqhup does ALL the effort. Patient does none of the effort to complete the activity. Or, the assistance of 2 or more helpers is required for the patient to complete the activity. If activity was not attempted, code reason: 7-Patient Refused. 9-Not Applicable-not attempted and the patient did not perform the activity before the current illness, exacerbation or injury. 10-Not Attempted due to Environmental Limitations-(lack of equipment, weather restraints, etc.). 88-Not Attempted due to Medical Conditions or Safety Concerns. Sit to Stand (QC): 3 (x 5 sets to FWW) Weight Bearing Right Lower Extremity: Right Non Weight Bearing Left Lower Extremity: Left Non Weight Bearing Gait Training Distance: 2 steps Gait Assistive Device: FWW mod assist with noted trunk flexed posture Exercises Seated Therapy Exercises: Ankle pumps, Sit to stand, Long arc quads Seated Reps: 15 (x 2) Assessment Patient able to take steps on this date. Improvement noted with patient encouraged to perform exercises PRN. Patient voices understanding. PT Halfway Goals Stretching Press Operator Goals PT Halfway Goals Time Frame: Aug 27, 2022 Roll Left & Right (QC): 6 Sit to Lying (QC): 6 Lying-Sitting on Side/Bed(QC): 6 Sit to Stand (QC): 3 Chair/Edc-sz-Lctbu Xfer(QC): 3 Toilet Transfer (QC): 3 Does the Patient Walk: No and Walking Goal NOT indicated PT Plan Treatment/Plan Treatment Plan: Continue Plan of Care Treatment Plan: Bed Mobility, Education, Functional Activity Jelani, Functional Strength, Gait, Safety, Therapeutic Exercise, Transfers Treatment Duration: Aug 27, 2022 Frequency: 6 times per week Estimated Hrs Per Day: .25 hour per day Patient and/or Family Agrees t: Yes Time Time In: 838 Time Out: 848 DATE: Aug 23, 2022 Total Billed Treatment Time: 10 Total Billed Treatment 1 visit EX 10 min RELL BERMAN PT Aug 23, 2022 09:01
--- NOTE | 2022-08-23 13:26 | Occupational Ther Daily Note ---
OT Current Status-Daily Note Subjective Patient up in recliner, agreeable to perform OT this afternoon Mental Status/Objective Patient Orientation: Person, Place, Time, Situation ADL-Treatment Patient continues to require 1-2 person assist for LB ADLS and transfers d/t extremity weakness x 4 Therapy Code Descriptions/Definitions Functional [place] Measure: 0=Not Assessed/NA 4=Minimal Assistance 1=Total Assistance 5=Supervision or Setup 2=Maximal Assistance 6=Modified [place] 3=Moderate Assistance 7=Complete IndependenceSCALE: Activities may be completed with or without assistive devices. 7-Scllpisuba-cgznlwi completes the activity by him/herself with no assistance from a helper. 5-Set-up or Clean-up Assistance-helper sets up or cleans up; patient completes activity. [place] assists only prior to or following the activity. 4-Supervision or Touching Assistance-helper provides verbal cues and/or touching/steadying and/or contact guard assistance as patient completes activity. Assistance may be provided throughout the activity or intermittently. 3-Partial/Moderate Assistance-helper does LESS THAN HALF the effort. [place] lifts, holds or supports trunk or limbs, but provides less than half the effort. 2-Substantial/Maximal Assistance-helper does MORE THAN HALF the effort. [place] lifts or holds trunk or limbs and provides more than half the effort. 2-Fbarafwwr-hxbpkl does ALL the effort. Patient does none of the effort to complete the activity. Or, the assistance of 2 or more helpers is required for the patient to complete the activity. If activity was not attempted, code reason: 7-Patient Refused. 9-Not Applicable-not attempted and the patient did not perform the activity before the current illness, exacerbation or injury. 10-Not Attempted due to Environmental Limitations-(lack of equipment, weather restraints, etc.). 88-Not Attempted due to Medical Conditions or Safety Concerns. Other Treatment red therapy medium resistance bands used to increase BUE strength for transfer, LB ADLS. Patient education for 10x3x3 multiple direction elbow extension and shoulder extension program to improved strength for pushing and offloading wilt FWW.Additional 10x3 arm chair pushups. Education OT Patient Education: Correct positioning, Exercise program, Home exercise pro gram, Progress toward Goal/Update tx plan, Purpose of tx/functional activities, Reviewed precautions, Rehab process, Safety issues Teaching Recipient: Patient Teaching Methods: Demonstration, Handout (white board), Discussion Response to Teaching: Verbalize Understanding, Return Demonstration, Reinforcement Needed OT Residential Goals Residential Goals Time Frame: Aug 20, 2022 Eating (QC): 6 Oral Hygiene (QC): 5 Toileting Hygiene (QC): 3 Shower/Bathe Self (QC): 3 Upper Body Dressing (QC): 5 Lower Body Dressing (QC): 3 On/Off Footwear (QC): 3 Additional Goals: 1-Demonstrate ADL Tasks, 2-Verbalize Understanding, 3- ImproveStrength/Jelani 1=Demonstrate adherence to instructed precautions during ADL tasks. 2=Patient will verbalize/demonstrate understanding of assistive devices/modifications for ADL. 3=Patient will improve strength/tolerance for activity to enable patient to perform ADL's. OT Education/Plan Problem List/Assessment Assessment: Decreased Activ Tolerance, Decreased Safety Aware, Decreased UE Strength, Impaired Funct Balance, Impaired Self-Care Skills Discharge Recommendations Plan/Recommendations: Continue POC Treatment Plan/Plan of Care Patient would benefit from OT for education, treatment and training to promote independence in ADL's, mobility, safety and/or upper extremity function for ADL's. Plan of Care: ADL Retraining, Functional Mobility, Group Exercise/Act as Ind, UE Funct Exercise/Act, UE Neuromus Re-Ed/Coord Treatment Duration: Aug 20, 2022 Frequency: 3 times per week (modified from 4-5 to 3-5 times per week) Estimated Hrs Per Day: .25 hour per day Agreement: Yes Rehab Potential: Fair Name written on theraband, all need met Time Start Time: 12:45 Stop Time: 13:00 DATE: Aug 23, 2022 Total Time Billed (hr/min): 15 Billed Treatment Time EX 15 YVONNE Mcmullen OT Aug 23, 2022 13:26
[2022-08-23 15:18] VITALS: BP 150/63
[2022-08-23] MEDS: DICLOFENAC 1% GEL 100 GM (VOLTAREN) TUBE TOP SCH ×2 (16:35→19:57)
[2022-08-23] MEDS: PRAMIPEXOLE 0.125 MG (MIRAPEX) TABLET PO SCH (19:57)
[2022-08-23] MEDS: ENOXAPARIN 40 MG/0.4 ML (LOVENOX) SYR SC SCH (20:02)
[2022-08-23 23:11] VITALS: BP 122/58
--- NOTE | 2022-08-24 05:44 | Progress Note - Hospitalist ---
Subjective HPI/CC On Admission Date Seen by Provider: Aug 23, 2022 Time Seen by Provider: 11:00 Chief complaint: UTI with inability to ambulate HPI: This is a 76-year-old female who moved here in December and her son takes care of her at home who presented to the ER with inability to ambulate. Apparently she was found to be very disheveled and poor hygiene and since her power wheelchair was not working she would defecate and urinate and sit in it all day. She does have breakdown on her buttocks and she does have a UTI. Subjective/Events-last exam LATE ENTRY Inadvertently missed note Awaiting NHP No issues Review of Systems General: Fatigue, Malaise Objective Exam Vital Signs Vital Signs Date Time Temp Pulse Resp B/P (MAP) Pulse Ox O2 Delivery O2 Flow Rate FiO2 08/23/22 23:11 37.1 77 18 122/58 (79) 96 Room Air 08/22/22 23:41 0.00 0.00 Capillary Refill : Less Than 3 Seconds General Appearance: No Apparent Distress, WD/WN Results/Procedures Lab Patient resulted labs reviewed. Assessment/Plan Assessment and Plan Assess & Plan/Chief Complaint Assessment: Inability to ambulate UTI-Completed abx Poor social situation Buttock breakdown RLS Hypertension Osteoarthritis Hyperlipidemia Plan: Bowel regimen Wound care may be needed PT and OT BEULAH PAREKH DO Aug 24, 2022 05:44
--- NOTE | 2022-08-24 05:45 | PM&R Progress Note ---
Subjective HPI/CC On Admission Date Seen by Provider: Aug 24, 2022 Time Seen by Provider: 11:00 Chief complaint: UTI with inability to ambulate HPI: This is a 76-year-old female who moved here in December and her son takes care of her at home who presented to the ER with inability to ambulate. Apparently she was found to be very disheveled and poor hygiene and since her power wheelchair was not working she would defecate and urinate and sit in it all day. She does have breakdown on her buttocks and she does have a UTI. Objective Exam Vital Signs Vital Signs Date Time Temp Pulse Resp B/P (MAP) Pulse Ox O2 Delivery O2 Flow Rate FiO2 08/24/22 13:42 36.5 77 18 157/73 98 Room Air 0.00 Capillary Refill : Less Than 3 Seconds General Appearance: No Apparent Distress, WD/WN HEENT: PERRL/EOMI, Normal ENT Inspection, Pharynx Normal, Moist Mucous Membranes Neck: Full Range of Motion, Normal Inspection, Non Tender Respiratory: Lungs Clear, Normal Breath Sounds Cardiovascular: Regular Rate, Rhythm Gastrointestinal: Normal Bowel Sounds, No Organomegaly, No Pulsatile Mass, Non Tender, Soft Back: Normal Inspection, No CVA Tenderness, No Vertebral Tenderness Extremity: Normal Capillary Refill, Normal Inspection, Normal Range of Motion, Non Tender, No Calf Tenderness, No Pedal Edema Neurologic/Psychiatric: Alert, Oriented x3, No Motor/Sensory Deficits, Normal Mood/Affect Skin: Normal Color, Warm/Dry Lymphatic: No Adenopathy Results/Procedures Lab Patient resulted labs reviewed. FIM Transfers Therapy Code Descriptions/Definitions Functional [place] Measure: 0=Not Assessed/NA 4=Minimal Assistance 1=Total Assistance 5=Supervision or Setup 2=Maximal Assistance 6=Modified [place] 3=Moderate Assistance 7=Complete IndependenceSCALE: Activities may be completed with or without assistive devices. 7-Vqyqmnmeak-xgznjpl completes the activity by him/herself with no assistance from a helper. 5-Set-up or Clean-up Assistance-helper sets up or cleans up; patient completes activity. [place] assists only prior to or following the activity. 4-Supervision or Touching Assistance-helper provides verbal cues and/or touching/steadying and/or contact guard assistance as patient completes activity. Assistance may be provided throughout the activity or intermittently. 3-Partial/Moderate Assistance-helper does LESS THAN HALF the effort. [place] lifts, holds or supports trunk or limbs, but provides less than half the effort. 2-Substantial/Maximal Assistance-helper does MORE THAN HALF the effort. [place] lifts or holds trunk or limbs and provides more than half the effort. 7-Vcphmjbdg-hqjhuu does ALL the effort. Patient does none of the effort to complete the activity. Or, the assistance of 2 or more helpers is required for the patient to complete the activity. If activity was not attempted, code reason: 7-Patient Refused. 9-Not Applicable-not attempted and the patient did not perform the activity before the current illness, exacerbation or injury. 10-Not Attempted due to Environmental Limitations-(lack of equipment, weather restraints, etc.). 88-Not Attempted due to Medical Conditions or Safety Concerns. Roll Left to Right (QC): 3 Sit to Lying (QC): 3 Sit to Stand (QC): 3 (x 5 sets to FWW) Chair/Vzp-nh-Jlthx Xfer(QC): 3 Gait Training Does the Patient Walk?: No and Walking Goal IS indicated Distance: 2 steps Gait Persons Needed: 1 Gait Assistive Device: FWW ADL-Treatment Eating (QC): 6 Oral Hygiene (QC): 5 (set up completes in sitting, is able to complete at sink in shower chair) Bathing Location: L Arm, R Arm, L Upper Leg, R Upper Leg, L Lower Leg (including foot), R Lower Leg (including foot), Chest, Abdomen, Buttocks, P erineal Area Shower/Bathe Self (QC): 3 (sitting ntire duration, HHSH, OT performed BLE below knees, back, hiar and buttocks) Upper Body Dressing (QC): 5 (Gown) Lower Body Dressing (QC): 1 On/Off Footwear (QC): 1 (during bathing OT cleansed toes and web spaces, filthy excess debri present) Toileting Hygiene (QC): 1 Toilet Transfer (QC): 1 Assessment/Plan Assessment and Plan Assess & Plan/Chief Complaint Assessment: Inability to ambulate UTI-Completed abx Poor social situation Buttock breakdown RLS Hypertension Osteoarthritis Hyperlipidemia Plan: Bowel regimen Wound care may be needed PT and OT BEULAH PAREKH DO Aug 24, 2022 05:45
[2022-08-24 07:10] VITALS: BP 157/73
[2022-08-24] MEDS: MICONAZOLE 2% POWDER (DESENEX AF) 90 GM TOP SCH (08:48)
[2022-08-24] MEDS: DICLOFENAC 1% GEL 100 GM (VOLTAREN) TUBE TOP SCH ×2 (08:48→13:25)
[2022-08-24] MEDS: MELOXICAM 7.5 MG (MOBIC) TABLET PO SCH (08:48)
[2022-08-24] MEDS: MULTIVIT W/MINERALS TAB (THERAGRAN M) PO SCH (08:48)
[2022-08-24] MEDS: SENNOSIDES 8.6 MG (SENOKOT) TAB PO SCH (08:49)
[2022-08-24] MEDS: DOCUSATE SODIUM 100 MG (COLACE) CAP PO SCH (08:49)
--- NOTE | 2022-08-24 10:15 | Occupational Ther Daily Note ---
OT Current Status-Daily Note Subjective Patient reports she is ready top go to [facility]. Agrees to perform ther ex and sit/stand reps for UE strength and transfer training. Mental Status/Objective Patient Orientation: Person, Place, Time, Situation ADL-Treatment Patient does not have any of her own personal belonging at the hospital, hospital gown and disposable brief changed with OT Therapy Code Descriptions/Definitions Functional [place] Measure: 0=Not Assessed/NA 4=Minimal Assistance 1=Total Assistance 5=Supervision or Setup 2=Maximal Assistance 6=Modified [place] 3=Moderate Assistance 7=Complete IndependenceSCALE: Activities may be completed with or without assistive devices. 0-Okryzaogof-wpcgrqe completes the activity by him/herself with no assistance from a helper. 5-Set-up or Clean-up Assistance-helper sets up or cleans up; patient completes activity. [place] assists only prior to or following the activity. 4-Supervision or Touching Assistance-helper provides verbal cues and/or touching/steadying and/or contact guard assistance as patient completes ac tivity. Assistance may be provided throughout the activity or intermittently. 3-Partial/Moderate Assistance-helper does LESS THAN HALF the effort. [place] lifts, holds or supports trunk or limbs, but provides less than half the effort. 2-Substantial/Maximal Assistance-helper does MORE THAN HALF the effort. [place] lifts or holds trunk or limbs and provides more than half the effort. 9-Wvrdxjjfz-rqnmch does ALL the effort. Patient does none of the effort to complete the activity. Or, the assistance of 2 or more helpers is required for the patient to complete the activity. If activity was not attempted, code reason: 7-Patient Refused. 9-Not Applicable-not attempted and the patient did not perform the activity before the current illness, exacerbation or injury. 10-Not Attempted due to Environmental Limitations-(lack of equipment, weather restraints, etc.). 88-Not Attempted due to Medical Conditions or Safety Concerns. Eating (QC): 6 Oral Hygiene (QC): 6 Upper Body Dressing (QC): 5 Lower Body Dressing (QC): 3 On/Off Footwear: 4 (w/ tools) Toileting Hygiene (QC): 4 Toilet Transfer (QC): 4 (BSC from recliner) Other Treatment Patient demonstrated ther ex program w/ 20% VCs for resistance and directional pull. Progressing well Education OT Patient Education: Correct positioning, Exercise program, Modified ADL techniques, Progress toward Goal/Update tx plan, Purpose of tx/functional activities, Reviewed precautions, Rehab process, Safety issues, Transfer techniques Teaching Recipient: Patient, Significant Other Teaching Methods: Demonstration Response to Teaching: Verbalize Understanding, Reinforcement Needed OT Short Term Goals Short Term Goals Time Frame: Aug 24, 2022 OT Asphalt Paving Foreman Goals Group Home Goals Time Frame: Aug 20, 2022 Eating (QC): 6 Oral Hygiene (QC): 5 Toileting Hygiene (QC): 3 Shower/Bathe Self (QC): 3 Upper Body Dressing (QC): 5 Lower Body Dressing (QC): 3 On/Off Footwear (QC): 3 Additional Goals: 1-Demonstrate ADL Tasks, 2-Verbalize Understanding, 3-ImproveStrength/Jelani 1=Demonstrate adherence to instructed precautions during ADL tasks. 2=Patient will verbalize/demonstrate understanding of assistive devices/modifications for ADL. 3=Patient will improve strength/tolerance for activity to enable patient to perform ADL's. OT Education/Plan Problem List/Assessment Assessment: Decreased Activ Tolerance, Decreased Safety Aware, Decreased UE Strength, Impaired Bed Mobility, Impaired Coordination, Impaired Funct Balance, Impaired Self-Care Skills Discharge Recommendations Plan/Recommendations: Continue POC Treatment Plan/Plan of Care Treatment,Training & Education: Yes Patient would benefit from OT for education, treatment and training to promote independence in ADL's, mobility, safety and/or upper extremity function for ADL's. Plan of Care: ADL Retraining, Functional Mobility, Group Exercise/Act as Ind, UE Funct Exercise/Act, UE Neuromus Re-Ed/Coord Treatment Duration: Aug 20, 2022 Frequency: 3 times per week (modified from 4-5 to 3-5 times per week) Estimated Hrs Per Day: .25 hour per day Agreement: Yes Rehab Potential: Fair all needs met Time Start Time: 08:50 Stop Time: 09:15 DATE: Aug 24, 2022 Total Time Billed (hr/min): 25 Billed Treatment Time ADL 1, EX 1 25 min YVONNE WEST OT Aug 24, 2022 10:15
[2022-08-24] MEDS ORDERED: PRAM0.12 PO (10:50)
[2022-08-24] MEDS ORDERED: MULT-1136 PO (10:50)
[2022-08-24] MEDS ORDERED: MELO15TA39 PO (10:50)
[2022-08-24] MEDS ORDERED: ATOR20TA66 PO (10:50)
[2022-08-24] MEDS ORDERED: ACET-2267 PO (10:50)
--- NOTE | 2022-08-24 10:52 | Discharge Inst-Skilled Nursing ---
Discharge Inst-Skilled NF Reconcile Patient Problems Problems Reviewed?: Yes Chief Complaint Chief complaint: UTI with inability to ambulate HPI: This is a 76-year-old female who moved here in December and her son takes care of her at home who presented to the ER with inability to ambulate. Apparently she was found to be very disheveled and poor hygiene and since her power wheelchair was not working she would defecate and urinate and sit in it all day. She does have breakdown on her buttocks and she does have a UTI. Patient Instructions Patient Problems: Debility Goal: [place] Consult/Follow Up/Orders Follow Up Appt.: PCP [place] rounds Skilled NF Admit to: [facility] Certification (SNF) I certify that SNF services are required to be given on an inpatient basis because of the above named patient's need for penitentiary care on a continuing basis for the conditions(s) for which he/she was receiving inpatient hospital services prior to his/her transfer to the SNF. [facility] Facility Order: Nursing Services, Regulatory Specialist-Evaluate & Treat, Physical Therapy-Evaluate & Treat, Speech Language-Evaluate & Treat Oxygen Delivery Method: Room Air Discharge Diet: No Restrictions Resuscitation Status: Full Code New & Resume Previous Orders New Medications: Pramipexole (Mirapex) 0.125 Mg Tablet 0.125 MG PO HS, #30 TAB Continued Medications: Acetaminophen (Tylenol Extra Strength) 500 Mg Tablet 1000 MG PO BID PRN for PAIN, #60 TAB (This prescription has been renewed) TAEKS 2 (500MG) TABS Atorvastatin Calcium (Atorvastatin Calcium) 20 Mg Tablet 20 MG PO DAILY, #30 TAB (This prescription has been renewed) Meloxicam (Meloxicam) 15 Mg Tablet 15 MG PO DAILY, #30 TAB (This prescription has been renewed) Multivitamin (Multivitamin) 1 Each Tablet 1 EACH PO DAILY, #30 TAB (This prescription has been renewed) Discontinued Medications: Lisinopril/Hydrochlorothiazide (Lisinopril-Hctz 10-12.5 mg Tab) 10 Mg-12.5 Mg Tablet 1 EACH PO DAILY, TAB Mirian Barton Aug 24, 2022 10:50 MIRIAN BARTON DO Aug 24, 2022 10:52
--- NOTE | 2022-08-24 10:52 | Discharge Summary ---
Discharge Summary Hospital Course Was the Problem List Reviewed?: Yes Problems/Dx: (1) UTI (urinary tract infection) Status: Acute Qualifiers: Qualified Codes: N30.01 - Acute cystitis with hematuria (2) Self-care deficit for bathing and hygiene Status: Acute (3) DVT prophylaxis Status: Acute (4) Hypertension Status: Chronic (5) Wheelchair dependent Status: Chronic (6) Hyperlipidemia Status: Chronic (7) Frequent falls Status: Chronic Hospital Course Date of Admission: Aug 12, 2022 at 21:43 Admission Diagnosis : Family Physician/Provider: No,Local Physician Date of Discharge: 08/24/22 Discharge Diagnosis: [ ] Hospital Course: Lengthy nearly 2-week hospital course awaiting usp placement when she presented with UTI and self-care neglect. Pseudomonas was on urine culture patient completed antibiotics. Awaiting usp placement for PT and OT and she was deemed stable for discharge. Labs and Pending Lab Test: Microbiology 08/12/22 Urine Culture - Final, Complete Pseudomonas aeruginosa Home Meds Active Mirapex (Pramipexole) 0.125 Mg Tablet 0.125 Mg PO HS Multivitamin 1 Each Tablet 1 Each PO DAILY Tylenol Extra Strength (Acetaminophen) 500 Mg Tablet 1,000 Mg PO BID PRN TAEKS 2 (500MG) TABS Meloxicam 15 Mg Tablet 15 Mg PO DAILY Atorvastatin Calcium 20 Mg Tablet 20 Mg PO DAILY Reported Lisinopril-Hctz 10-12.5 mg Tab (Lisinopril/Hydrochlorothiazide) 10 Mg-12.5 Mg Tablet 1 Each PO DAILY Assessment/Pt Instructions PCP on usp rounds Discharge Planning: <30 minutes discharge planning Discharge Instructions Discharge Diet: No Restrictions Discharge Physical Examination Vital Signs Vital Signs Date Time Temp Pulse Resp B/P (MAP) Pulse Ox O2 Delivery O2 Flow Rate FiO2 08/24/22 08:00 Room Air 08/24/22 07:10 36.5 77 18 157/73 (101) 98 08/22/22 23:41 0.00 0.00 General Appearance: No Apparent Distress, WD/WN Allergies: Coded Allergies: No Known Drug Allergies (Unverified , 08/13/22) Discharge Summary Date of Admission Aug 12, 2022 at 21:43 Date of Discharge Discharge Date: Aug 24, 2022 Admission Diagnosis Assessment: Inability to ambulate UTI Poor social situation Buttock breakdown RLS Hypertension Osteoarthritis Hyperlipidemia Plan: Treat UTI Wound care may be needed PT and OT Discharge Diagnosis Assessment: Inability to ambulate UTI-Completed abx Poor social situation Buttock breakdown RLS Hypertension Osteoarthritis Hyperlipidemia Plan: Bowel regimen Wound care may be needed PT and OT BEULAH PAREKH DO Aug 24, 2022 10:52
[2022-08-24 13:42] VITALS: BP 157/73
== END 2022-08-24 13:52 ==
LOC: EDUNIT# 19:18 → ER 19:20 → 4TH 21:43 → UNDOADMOB 21:43 → 4TH 22:02 → UNDODISOB 08-24 13:51
PROVIDERS: ADMIT Internal Medicine; ATTEND Internal Medicine
DX: N30.01 Acute cystitis with hematuria (principal); I10 Essential (primary) hypertension; E78.5 Hyperlipidemia, unspecified; G25.81 Restless legs syndrome; M19.90 Unspecified osteoarthritis, unspecified site; Z99.3 Dependence on wheelchair
CPT/HCPCS: 51702; 80053 ×10; 81000; 83690; 85025 ×10; 87077; 87088; 94760 ×2; 96361; 96366 ×4; 96372 ×12; 96374; 96375 ×2; 96376 ×4; 97110 ×6; 97162; 97166; 97530 ×6; 97535 ×4; 99284; G0378; 36415